=== PATIENT | male | born 1955 | race Caucasian/White ===

== ENCOUNTER 2016-07-03 15:34 | Inpatient (IN) | payer OTHER ==
[2016-07-03] MEDS ORDERED: Ondansetron 4 MG/2 ML SDV IVPUSH PRN (15:37)
[2016-07-03] MEDS ORDERED: Sodium Chloride 0.9% 2.5 ML Syringe FLUSH PRN (15:37)
[2016-07-03] MEDS ORDERED: Sodium Chloride 0.9% 1,000 ML IV SCH ×2 (15:45→17:45)
--- NOTE | 2016-07-03 16:23 | PCM.HP ---
<Joann Gonzales M - Last Filed: 07/03/16 16:47> H&P History of Present Illness - General Date of Service: 07/03/16 Admit Problem/Dx: Admission Diagnosis/Problem Admission Diagnosis/Problem Hyperglycemia Source of Information: Patient History Limitations: Reports: Altered mental status - History of Present Illness Initial Comments - Free Text/Narative: This 60 year old male presented to [place] ED today due to complaints of intense sore throat, he reports drinking anything possible to soothe his throat. He reports recently being on amoxicillin for a "jaw infection" by the dentist, but he denied continuing this course of antibiotics. He denies any history of DM or COPD. He denies taking any home medications. He reports some intermittent confusion at work but "works through it". It was noted in [place] to have intermittent confusion, Head CT obtained which was negative. Leukocytosis, 14,300 noted with hyperglycemia, 910. Anion gap 19, Bicarb 24, Cl 83, Na 126, Potassium 5.2. BUN 43, Cr 1.9. UA negative and negative tox screen. Strep screen negative. He will be admitted to ICU with Hyperosmolar hyperglycemia, AMS, dehydration, TERRIE, and oral thrush. - Related Data Allergies/Adverse Reactions: Allergies Allergy/AdvReac Type Severity Reaction Status Date / Time Penicillins Allergy Cannot Verified 07/03/16 15:44 Remember Past Medical History HEENT History: Reports: None Cardiovascular History: Denies: Blood clots/VTE/DVT, CAD, Heart Failure, High cholesterol, Hypertension, [place] Respiratory History: Denies: Asthma, COPD Gastrointestinal History: Denies: GERD, GI bleed Genitourinary History: Reports: Acute renal failure. Denies: Chronic renal insuffiency Neurological History: Denies: CVA, TIA Psychiatric History: Reports: None, Depression Endocrine/Metabolic History: Reports: Diabetes, type II (he denies having or taking medication for but home medication list has DM type 2 treatment) Hematologic History: Reports: None Social & Family History - Tobacco Use Smoking Status *Q: Former Smoker Used Tobacco, but Quit: Yes - Alcohol Use Alcohol Use History: No - Recreational Drug Use Recreational Drug Use: No Drug Use in Last 12 Months: No - Living Situation & Occupation Occupation: employed (Works at [employer] in [place]) H&P Review of Systems - Review of Systems: Review Of Systems: See Below General: Denies: fever, chills, malaise, weakness HEENT: Reports: sore throat. Denies: headaches, sinus congestion Pulmonary: Reports: no symptoms. Denies: shortness of breath, wheezing, cough, sputum Cardiovascular: Reports: no symptoms. Denies: chest pain, palpitations, edema Gastrointestinal: Reports: No symptoms. Denies: Abdominal pain, Black stool, Bloody stool, Nausea, Vomiting Genitourinary: Reports: no symptoms. Denies: dysuria, frequency, burning, pain Musculoskeletal: Reports: no symptoms Skin: Reports: no symptoms Psychiatric: Reports: no symptoms Neurological: Reports: no symptoms Hematologic/Lymphatic: Reports: no symptoms Immunologic: Reports: no symptoms Exam - Exam Exam: See Below - Exam Quality Assessment: DVT prophylaxis. No: supplemental oxygen General: alert, cooperative. No: oriented (intermittent confusion) HEENT: Conjunctiva clear, EACs clear, EOMI, Hearing intact, Nares patent, Posterior pharynx clear (lace appearing white plaque noted to posterior pharynx , no pustules, erythema noted). No: Mucosa moist & pink (dry) Neck: supple, trachea midline. No: lymphadenopathy, JVD Lungs: Clear to auscultation, Normal respiratory effort Cardiovascular: regular rate, regular rhythm, normal S1, normal S2 Abdomen: normal bowel sounds, soft. No: organomegaly, tenderness Back Exam: normal inspection, full range of motion, NT Extremities: normal inspection, normal pulses. No: edema, increased warmth Neuro Extensive - Mental Status: alert, oriented x3, normal mood/affect, normal cognition. No: memory intact Neuro Extensive - Motor, Sensory, Reflexes: CN II-XII intact, normal gait, normal reflexes Psychiatric: alert, normal affect, normal mood - Patient Data Result Diagrams: 07/03/16 16:04 *Q Meaningful Use (ADM) - VTE *Q VTE Criteria *Q: - VTE Risk Assess *Q Each Risk Factor Represents 1 Point: None Total Score 1 Point Risk Factors: 0 Each Risk Factor Represents 2 Points: Age 60 - 74 Years Total Score 2 Point Risk Factors: 2 Each Risk Factor Represents 3 Points: None Total Score 3 Point Risk Factors: 0 Each Risk Factor Represents 5 Points: None Total Score 5 Point Risk Factors: 0 Venous Thromboembolism Risk Factor Score *Q: 2 - Stroke *Q Stroke Criteria *Q: - AMI *Q AMI Criteria *Q: - Problem List (1) Hyperglycemia due to type 2 diabetes mellitus SNOMED Code(s): 870222698870053, 344394988614941 ICD Code: E11.65 - TYPE 2 DIABETES MELLITUS WITH HYPERGLYCEMIA Status: Acute Current Visit: Yes Qualifiers: Diabetes mellitus long goods drier insulin use: without chcf use Qualified Code(s): E11.65 - Type 2 diabetes mellitus with hyperglycemia (2) Oral thrush SNOMED Code(s): 97948395 ICD Code: B37.0 - CANDIDAL STOMATITIS Status: Acute Current Visit: Yes (3) TERRIE (acute kidney injury) SNOMED Code(s): 86651830 ICD Code: N17.9 - ACUTE KIDNEY FAILURE, UNSPECIFIED Status: Acute Current Visit: Yes (4) Dehydration SNOMED Code(s): 90054690 ICD Code: E86.0 - DEHYDRATION Status: Acute Current Visit: Yes (5) Altered mental status SNOMED Code(s): 162863108 ICD Code: R41.82 - ALTERED MENTAL STATUS, UNSPECIFIED Status: Acute Current Visit: Yes Problem List Initiated/Reviewed/Updated: Yes Orders Last 24hrs: Active Orders 24 hr Category Date Time Status Patient Status [ADT] Routine ADT 07/03/16 15:37 Active Antiembolic Devices [RC] PER UNIT ROUTINE Care 07/03/16 15:40 Active Blood Glucose Check, Bedside [RC] Q1H Care 07/03/16 15:37 Active Height and Weight [RC] DAILY Care 07/03/16 15:37 Active Intake and Output [RC] QSHIFT Care 07/03/16 15:39 Active Oxygen Therapy [RC] PRN Care 07/03/16 15:37 Active VTE/DVT Education [RC] PER UNIT ROUTINE Care 07/03/16 15:37 Active Vital Signs [RC] Q4H Care 07/03/16 15:37 Active Consult to Diabetic Nurse Specialist [CONS] Routine Cons 07/03/16 15:37 Active Nothing per Oral Now Diet [DIET] Diet 07/03/16 Dinner Active Chest 1V Frontal [CR] Routine Exams 07/03/16 15:57 Ordered BLOOD GAS ARTERIAL [BG] Stat Lab 07/03/16 15:37 Ordered CBC WITH AUTO DIFF [HEME] Stat Lab 07/03/16 15:37 Ordered COMPREHENSIVE METABOLIC PN,CMP [CHEM] Stat Lab 07/03/16 15:37 Ordered CULTURE BLOOD [BC] Stat Lab 07/03/16 15:42 Ordered CULTURE BLOOD [BC] Stat Lab 07/03/16 15:42 Ordered CULTURE SPUTUM + SMEAR [RM] Stat Lab 07/03/16 15:37 Uncollected KETONES,BLOOD [CHEM] Routine Lab 07/03/16 15:37 Ordered LACTIC ACID,WHOLE BLOOD [BG] Routine Lab 07/03/16 15:43 Ordered MAGNESIUM [CHEM] Stat Lab 07/03/16 15:37 Ordered PHOSPHORUS [CHEM] Stat Lab 07/03/16 15:37 Ordered Enoxaparin [Lovenox] Med 07/03/16 15:45 Active 40 mg SUBCUT DAILY Insulin Regular, Human [NovoLIN R] 100 unit Med 07/03/16 15:45 Active Sodium Chloride 0.9% [Normal Saline] 99 ml IV TITRATE Ondansetron [Zofran] Med 07/03/16 15:37 Active 4 mg IVPUSH Q4H PRN Sodium Chloride 0.9% [Normal Saline] 1,000 ml Med 07/03/16 15:45 Active IV .BOLUS Sodium Chloride 0.9% [Normal Saline] 1,000 ml Med 07/03/16 15:45 Active IV ASDIRECTED Sodium Chloride 0.9% [Saline Flush] Med 07/03/16 15:37 Active 2.5 ml FLUSH ASDIRECTED PRN Blood Culture x2 Reflex Set [OM.PC] Stat Oth 07/03/16 15:37 Ordered Saline Lock Insert [OM.PC] Routine Oth 07/03/16 15:37 Ordered Sequential Compression Device [OM.PC] Per Unit Routine Oth 07/03/16 15:39 Ordered Resuscitation Status Routine Resus Stat 07/03/16 15:37 Ordered Medication Orders Enoxaparin Sodium (Lovenox) 40 mg SUBCUT DAILY ROSETTE Sodium Chloride (Normal Saline) 1,000 mls @ 999 mls/hr IV .BOLUS ROSETTE Sodium Chloride (Normal Saline) 1,000 mls @ 200 mls/hr IV ASDIRECTED ROSETTE Insulin Human Regular 100 unit (/ Sodium Chloride) 100 mls @ 4 mls/hr IV TITRATE ROSETTE; 4 UNIT/HR PRN Reason: Protocol Ondansetron HCl (Zofran) 4 mg IVPUSH Q4H PRN PRN Reason: Nausea Sodium Chloride (Saline Flush) 2.5 ml FLUSH ASDIRECTED PRN PRN Reason: Keep Vein Open Assessment/Plan Comment:: This 60 year old male admitted with hyperosmolar hyperglycemic state, AMS, dehydration, TERRIE 1. AMS: Likely secondary to hyperosmolar hyperglycemic state, will monitor as BS return to normal. Head CT in [place] unremarkable. 2. Hyperosmolar hyperglycemic state: BS upon arrival, 464. Will initiate Insulin gtt and titrate per protocol. NS 1 L bolus upon arrival and NS at 200 mls/hr. Will monitor BMP q 4 hrs ad adjust fluids as needed. K+ 5.2. Lactate elevated, 2.2, will continue IV fluids and re check. Will add A1c and lipid panel. Consult to DM educator. 3. Dehydration: Likely due to above, hydrate and monitor BUN Cr. 4. TERRIE: Hydrate with fluids and monitor 5. Oral Thrush: Oral Nystatin swish and swallow. No Diflucan at this time due to elevated LFTs. Will monitor. VTE: Lovenox. Dispo: 2-4 days pending improvement Spoke with operations research analyst EICU physician will consult and assist with this patient. Updated Dr. Velazco on patient arrival and plan of care. She will update orders as BMP is made available. Will contact PCP in am regarding patient medication history. <Lizeth Velazco - Last Filed: 07/03/16 17:39> H&P History of Present Illness - General Admit Problem/Dx: Admission Diagnosis/Problem Admission Diagnosis/Problem Hyperglycemia Exam - Vital Signs Vital Signs: Last Vital Signs Temp 98.4 F 07/03/16 15:37 Pulse 80 07/03/16 17:00 Resp 17 07/03/16 17:00 BP 142/67 H 07/03/16 17:00 Pulse Ox 94 L 07/03/16 17:00 - Patient Data Lab Results last 24 hrs: Laboratory Results - last 24 hr 07/03/16 07/03/16 07/03/16 Range/Units 16:04 16:04 16:04 WBC 15.45 H (4.0-11.0) K/uL RBC 5.22 (4.50-5.90) M/uL Hgb 15.3 (13.0-17.0) g/dL Hct 45.2 (38.0-50.0) % MCV 86.6 (80.0-98.0) fL MCH 29.3 (27.0-32.0) pg MCHC 33.8 (31.0-37.0) g/dL RDW Std Deviation 41.9 (28.0-62.0) fl RDW Coeff of Trini 13 (11.0-15.0) % Plt Count 253 (150-400) K/uL MPV 12.80 H (7.40-12.00) fL Neut % (Auto) 75.9 (48.0-80.0) % Lymph % (Auto) 14.2 L (16.0-40.0) % [place] % (Auto) 9.5 (0.0-15.0) % Eos % (Auto) 0.2 (0.0-7.0) % Baso % (Auto) 0.2 (0.0-1.5) % Neut # 11.7 H (1.4-5.7) K/uL Lymph # 2.2 (0.6-2.4) K/uL [place] # 1.5 H (0.0-0.8) K/uL Eos # 0.0 (0.0-0.7) K/uL Baso # 0.0 (0.0-0.1) K/uL Nucleated RBC % 0.1 /100WBC Nucleated RBCs # 0 K/uL ABG pH (7.35-7.45) ABG pCO2 (35-45) mmHG ABG pO2 (75-100) mmHG ABG HCO3 (22-26) mEq/L ABG Total CO2 ABG Base Excess (-2.0-2.0) Lactate (0.20-2.00) mmol/L Sodium 133 L (136-146) mmol/L Potassium 5.3 H (3.5-5.1) mmol/L Chloride 92 L (98-110) mmol/L Carbon Dioxide 20 L (21-31) mmol/L BUN 36 H (6.0-23.0) mg/dL Creatinine 1.8 H (0.6-1.5) mg/dL Est Cr Clr Drug Dosing TNP Estimated GFR (MDRD) 38.4 ml/min Glucose 591 H* (60-110) mg/dL POC Glucose (60-110) mg/dL Hemoglobin A1c (0.0-6.0) % Calcium 9.4 (8.8-10.8) mg/dL Phosphorus 4.0 (2.4-4.7) mg/dL Magnesium 2.0 (1.5-2.3) mEq/L Total Bilirubin 0.6 (0.1-1.5) mg/dL AST 17 (5-40) IU/L ALT 30 (8-54) IU/L Alkaline Phosphatase 129 (40-150) Total Protein 7.4 (6.0-8.0) g/dL Albumin 4.0 (3.4-4.8) g/dL Globulin 3.4 (2.0-3.5) g/dL Albumin/Globulin Ratio 1.2 L (1.3-2.8) Triglycerides (10-190) mg/dL Cholesterol (131-240) mg/dL HDL Cholesterol (40-80) mg/dL Cholesterol/HDL Ratio (3.3-6.0) Ketones SMALL H (NEG) 07/03/16 07/03/16 07/03/16 Range/Units 16:04 16:04 16:04 WBC (4.0-11.0) K/uL RBC (4.50-5.90) M/uL Hgb (13.0-17.0) g/dL Hct (38.0-50.0) % MCV (80.0-98.0) fL MCH (27.0-32.0) pg MCHC (31.0-37.0) g/dL RDW Std Deviation (28.0-62.0) fl RDW Coeff of Trini (11.0-15.0) % Plt Count (150-400) K/uL MPV (7.40-12.00) fL Neut % (Auto) (48.0-80.0) % Lymph % (Auto) (16.0-40.0) % [place] % (Auto) (0.0-15.0) % Eos % (Auto) (0.0-7.0) % Baso % (Auto) (0.0-1.5) % Neut # (1.4-5.7) K/uL Lymph # (0.6-2.4) K/uL [place] # (0.0-0.8) K/uL Eos # (0.0-0.7) K/uL Baso # (0.0-0.1) K/uL Nucleated RBC % /100WBC Nucleated RBCs # K/uL ABG pH (7.35-7.45) ABG pCO2 (35-45) mmHG ABG pO2 (75-100) mmHG ABG HCO3 (22-26) mEq/L ABG Total CO2 ABG Base Excess (-2.0-2.0) Lactate 2.2 H (0.20-2.00) mmol/L Sodium (136-146) mmol/L Potassium (3.5-5.1) mmol/L Chloride (98-110) mmol/L Carbon Dioxide (21-31) mmol/L BUN (6.0-23.0) mg/dL Creatinine (0.6-1.5) mg/dL Est Cr Clr Drug Dosing Estimated GFR (MDRD) ml/min Glucose (60-110) mg/dL POC Glucose (60-110) mg/dL Hemoglobin A1c 13.7 H (0.0-6.0) % Calcium (8.8-10.8) mg/dL Phosphorus (2.4-4.7) mg/dL Magnesium (1.5-2.3) mEq/L Total Bilirubin (0.1-1.5) mg/dL AST (5-40) IU/L ALT (8-54) IU/L Alkaline Phosphatase (40-150) Total Protein (6.0-8.0) g/dL Albumin (3.4-4.8) g/dL Globulin (2.0-3.5) g/dL Albumin/Globulin Ratio (1.3-2.8) Triglycerides 457 H (10-190) mg/dL Cholesterol 240 (131-240) mg/dL HDL Cholesterol 37 L (40-80) mg/dL Cholesterol/HDL Ratio 6.5 H (3.3-6.0) Ketones (NEG) 07/03/16 07/03/16 07/03/16 Range/Units 16:13 16:27 17:19 WBC (4.0-11.0) K/uL RBC (4.50-5.90) M/uL Hgb (13.0-17.0) g/dL Hct (38.0-50.0) % MCV (80.0-98.0) fL MCH (27.0-32.0) pg MCHC (31.0-37.0) g/dL RDW Std Deviation (28.0-62.0) fl RDW Coeff of Trini (11.0-15.0) % Plt Count (150-400) K/uL MPV (7.40-12.00) fL Neut % (Auto) (48.0-80.0) % Lymph % (Auto) (16.0-40.0) % [place] % (Auto) (0.0-15.0) % Eos % (Auto) (0.0-7.0) % Baso % (Auto) (0.0-1.5) % Neut # (1.4-5.7) K/uL Lymph # (0.6-2.4) K/uL [place] # (0.0-0.8) K/uL Eos # (0.0-0.7) K/uL Baso # (0.0-0.1) K/uL Nucleated RBC % /100WBC Nucleated RBCs # K/uL ABG pH 7.331 L (7.35-7.45) ABG pCO2 37 (35-45) mmHG ABG pO2 70 L (75-100) mmHG ABG HCO3 19 L (22-26) mEq/L ABG Total CO2 17.3 ABG Base Excess -6.0 L (-2.0-2.0) Lactate (0.20-2.00) mmol/L Sodium (136-146) mmol/L Potassium (3.5-5.1) mmol/L Chloride (98-110) mmol/L Carbon Dioxide (21-31) mmol/L BUN (6.0-23.0) mg/dL Creatinine (0.6-1.5) mg/dL Est Cr Clr Drug Dosing Estimated GFR (MDRD) ml/min Glucose (60-110) mg/dL POC Glucose 464 H 375 H (60-110) mg/dL Hemoglobin A1c (0.0-6.0) % Calcium (8.8-10.8) mg/dL Phosphorus (2.4-4.7) mg/dL Magnesium (1.5-2.3) mEq/L Total Bilirubin (0.1-1.5) mg/dL AST (5-40) IU/L ALT (8-54) IU/L Alkaline Phosphatase (40-150) Total Protein (6.0-8.0) g/dL Albumin (3.4-4.8) g/dL Globulin (2.0-3.5) g/dL Albumin/Globulin Ratio (1.3-2.8) Triglycerides (10-190) mg/dL Cholesterol (131-240) mg/dL HDL Cholesterol (40-80) mg/dL Cholesterol/HDL Ratio (3.3-6.0) Ketones (NEG) Result Diagrams: 07/03/16 16:04 07/03/16 16:04 *Q Meaningful Use (ADM) - VTE *Q VTE Criteria *Q: - Stroke *Q Stroke Criteria *Q: - AMI *Q AMI Criteria *Q: Orders Last 24hrs: Active Orders 24 hr Category Date Time Status Patient Status [ADT] Routine ADT 07/03/16 15:37 Active Antiembolic Devices [RC] PER UNIT ROUTINE Care 07/03/16 15:40 Active Antiembolic Devices [RC] PER UNIT ROUTINE Care 07/03/16 16:46 Active Blood Glucose Check, Bedside [RC] .PRN Care 07/03/16 15:37 Active Height and Weight [RC] DAILY Care 07/03/16 15:37 Active Intake and Output [RC] QSHIFT Care 07/03/16 15:39 Active Oxygen Therapy [RC] PRN Care 07/03/16 15:37 Active VTE/DVT Education [RC] PER UNIT ROUTINE Care 07/03/16 15:37 Active Vital Signs [RC] Q1H Care 07/03/16 15:37 Active Consult to Diabetic Nurse Specialist [CONS] Routine Cons 07/03/16 15:37 Active Nothing per Oral Now Diet [DIET] Diet 07/03/16 Dinner Active Chest 1V Frontal [CR] Routine Exams 07/03/16 15:57 Taken BMP [BASIC METABOLIC PANEL,BMP] [CHEM] Q4H Lab 07/03/16 20:00 Ordered BMP [BASIC METABOLIC PANEL,BMP] [CHEM] Q4H Lab 07/04/16 00:00 Ordered BMP [BASIC METABOLIC PANEL,BMP] [CHEM] Q4H Lab 07/04/16 04:00 Ordered BMP [BASIC METABOLIC PANEL,BMP] [CHEM] Q4H Lab 07/04/16 08:00 Ordered BMP [BASIC METABOLIC PANEL,BMP] [CHEM] Q4H Lab 07/04/16 12:00 Ordered CULTURE BLOOD [BC] Stat Lab 07/03/16 16:04 Received CULTURE BLOOD [BC] Stat Lab 07/03/16 16:15 Received CULTURE SPUTUM + SMEAR [RM] Stat Lab 07/03/16 15:37 Uncollected LACTIC ACID,WHOLE BLOOD [BG] Routine Lab 07/03/16 20:00 Ordered Enoxaparin [Lovenox] Med 07/03/16 15:45 Active 40 mg SUBCUT DAILY Insulin Regular, Human [NovoLIN R] 100 unit Med 07/03/16 15:45 Active Sodium Chloride 0.9% [Normal Saline] 99 ml IV TITRATE Nystatin [Mycostatin] Med 07/03/16 16:30 Active 10 ml PO QID Ondansetron [Zofran] Med 07/03/16 15:37 Active 4 mg IVPUSH Q4H PRN Sodium Chloride 0.9% [Normal Saline] 1,000 ml Med 07/03/16 15:45 Active IV .BOLUS Sodium Chloride 0.9% [Normal Saline] 1,000 ml Med 07/03/16 15:45 Active IV ASDIRECTED Sodium Chloride 0.9% [Saline Flush] Med 07/03/16 15:37 Active 2.5 ml FLUSH ASDIRECTED PRN Blood Culture x2 Reflex Set [OM.PC] Stat Oth 07/03/16 15:37 Ordered SCD [Sequential Compression Device] [OM.PC] Routine Oth 07/03/16 16:46 Ordered Saline Lock Insert [OM.PC] Routine Oth 07/03/16 15:37 Ordered Sequential Compression Device [OM.PC] Per Unit Routine Oth 07/03/16 15:39 Ordered Resuscitation Status Routine Resus Stat 07/03/16 15:37 Ordered Medication Orders Enoxaparin Sodium (Lovenox) 40 mg SUBCUT DAILY [facility] Last Admin: 07/03/16 16:26 Dose: Not Given Sodium Chloride (Normal Saline) 1,000 mls @ 999 mls/hr IV .BOLUS ROSETTE Sodium Chloride (Normal Saline) 1,000 mls @ 200 mls/hr IV ASDIRECTED ROSETTE Last Admin: 07/03/16 17:27 Dose: 200 mls/hr Insulin Human Regular 100 unit (/ Sodium Chloride) 100 mls @ 4 mls/hr IV TITRATE ROSETTE; 4 UNIT/HR PRN Reason: Protocol Last Titration: 07/03/16 17:28 Dose: 6 unit/hr, 6 mls/hr Admin: 07/03/16 16:22 Dose: 8 unit/hr, 8 mls/hr Nystatin (Mycostatin) 10 ml PO QID ROSETTE Last Admin: 07/03/16 16:34 Dose: 10 ml Ondansetron HCl (Zofran) 4 mg IVPUSH Q4H PRN PRN Reason: Nausea Sodium Chloride (Saline Flush) 2.5 ml FLUSH ASDIRECTED PRN PRN Reason: Keep Vein Open Assessment/Plan Comment:: Patient has small ketones in the blood . He has Bicarb on Abg 19. he also has DKA. received 3 L of NS , will add one more liter NS. No tooth pain or swelling of the gum . pharmacy will also prep Magic mouth wash for patient without Benadryl.
[2016-07-03] MEDS: Enoxaparin 40 MG/0.4 ML Syringe SUBCUT SCH (16:26)
[2016-07-03] MEDS ORDERED: Nystatin Susp 100,000 Unit/ML 5 ML UD Cup PO SCH (16:30)
[2016-07-03 16:44] LABS: CHLORIDE,CL 92 mmol/L (98-110); SODIUM,NA 133 mmol/L (136-146)
[2016-07-03] MEDS: Sodium Chloride 0.9% 1,000 ML IV SCH ×2 (17:27→21:58)
[2016-07-03] MEDS: Fluconazole/Dextrose 200 MG in Premix Bag 1 BAG IV SCH (18:22)
[2016-07-03] MEDS: ALUM HYDROX PO SCH ×9 (18:22→21:30)
[2016-07-03] MEDS: NYSTATIN PO SCH ×9 (18:22→21:30)
[2016-07-03] MEDS: MAG HYDROX PO SCH ×9 (18:22→21:30)
[2016-07-03] MEDS: LIDOCAINE PO SCH ×9 (18:22→21:30)
[2016-07-03] MEDS: SIMETH PO SCH ×9 (18:22→21:30)
[2016-07-04] MEDS: Benzocaine/Cetylpyridinium/Menthol Lozenge MUCMEM PRN ×5 (00:52→16:52)
[2016-07-04 00:55] LABS: CHLORIDE,CL 104 mmol/L (98-110); SODIUM,NA 139 mmol/L (136-146)
[2016-07-04] MEDS: ALUM HYDROX PO SCH ×18 (02:30→21:46)
[2016-07-04] MEDS: NYSTATIN PO SCH ×18 (02:30→21:46)
[2016-07-04] MEDS: MAG HYDROX PO SCH ×18 (02:30→21:46)
[2016-07-04] MEDS: LIDOCAINE PO SCH ×18 (02:30→21:46)
[2016-07-04] MEDS: SIMETH PO SCH ×18 (02:30→21:46)
[2016-07-04] MEDS: Sodium Chloride 0.9% 1,000 ML IV SCH ×4 (02:45→09:13)
[2016-07-04 04:41] LABS: CHLORIDE,CL 107 mmol/L (98-110); SODIUM,NA 138 mmol/L (136-146)
[2016-07-04] MEDS: Insulin Glargine,Human Rec. Analog 100 Units/ML 3 ML Pen SUBCUT SCH ×2 (06:04→08:20)
[2016-07-04] MEDS ORDERED: Insulin Regular, Human 100 Units/ML 10 ML Vial SUBCUT SCH (07:30)
[2016-07-04] MEDS ORDERED: Insulin Aspart 100 Units/ML 3 ML Pen SUBCUT SCH ×2 (07:30→11:30)
[2016-07-04] MEDS: Enoxaparin 40 MG/0.4 ML Syringe SUBCUT SCH (08:19)
[2016-07-04] MEDS: Insulin Aspart 100 Units/ML 3 ML Pen SUBCUT SCH ×6 (08:19→21:17)
[2016-07-04] MEDS ORDERED: Insulin Glargine,Human Rec. Analog 100 Units/ML 3 ML Pen SUBCUT SCH ×2 (09:00→21:00)
[2016-07-04] MEDS ORDERED: Insulin Glargine,Human Rec. Analog 100 Units/ML 3 ML Pen SUBCUT ONE (09:00)
[2016-07-04] MEDS: atorvaSTATin 40 MG Tab PO SCH ×2 (09:04→21:13)
--- NOTE | 2016-07-04 09:51 | PCM.PN ---
<Joann Gonzales M - Last Filed: 07/04/16 12:01> - General Info Date of Service: 07/04/16 Admission Dx/Problem (Free Text): Admission Diagnosis/Problem Admission Diagnosis/Problem Hyperglycemia Subjective Update: Feeling better today, feels more "clear". Alert and oriented. Denies chest pain or SOB. Sore throat continues and food does not taste good. Functional Status: Reports: pain controlled, ambulating, urinating. Denies: tolerating diet - Review of Systems General: Reports: no symptoms HEENT: Reports: sore throat. Denies: headaches, sinus congestion Pulmonary: Reports: no symptoms. Denies: shortness of breath, cough, sputum Cardiovascular: Reports: no symptoms. Denies: chest pain, palpitations, edema Gastrointestinal: Reports: No symptoms. Denies: Abdominal pain, Nausea, Vomiting Genitourinary: Reports: no symptoms Musculoskeletal: Reports: no symptoms Skin: Reports: no symptoms Neurological: Reports: no symptoms Psychiatric: Reports: no symptoms - Patient Data Vitals - most recent: Last Vital Signs Temp 97.9 F 07/04/16 08:00 Pulse 79 07/03/16 19:00 Resp 16 07/04/16 09:00 BP 112/47 L 07/04/16 09:00 Pulse Ox 92 L 07/04/16 09:00 Weight - most recent: 193 lb 9.6 oz I&O - last 24 hours: Intake & Output 07/03/16 07/04/16 07/04/16 22:59 06:59 14:59 Intake Total 3300 1900 1000 Output Total 1850 Balance 3300 50 1000 Lab Results last 24 hrs: Laboratory Results - last 24 hr 07/03/16 07/03/16 07/03/16 Range/Units 16:04 16:04 16:04 WBC 15.45 H (4.0-11.0) K/uL RBC 5.22 (4.50-5.90) M/uL Hgb 15.3 (13.0-17.0) g/dL Hct 45.2 (38.0-50.0) % MCV 86.6 (80.0-98.0) fL MCH 29.3 (27.0-32.0) pg MCHC 33.8 (31.0-37.0) g/dL RDW Std Deviation 41.9 (28.0-62.0) fl RDW Coeff of Trini 13 (11.0-15.0) % Plt Count 253 (150-400) K/uL MPV 12.80 H (7.40-12.00) fL Neut % (Auto) 75.9 (48.0-80.0) % Lymph % (Auto) 14.2 L (16.0-40.0) % Cross % (Auto) 9.5 (0.0-15.0) % Eos % (Auto) 0.2 (0.0-7.0) % Baso % (Auto) 0.2 (0.0-1.5) % Neut # 11.7 H (1.4-5.7) K/uL Lymph # 2.2 (0.6-2.4) K/uL Cross # 1.5 H (0.0-0.8) K/uL Eos # 0.0 (0.0-0.7) K/uL Baso # 0.0 (0.0-0.1) K/uL Nucleated RBC % 0.1 /100WBC Nucleated RBCs # 0 K/uL ABG pH (7.35-7.45) ABG pCO2 (35-45) mmHG ABG pO2 (75-100) mmHG ABG HCO3 (22-26) mEq/L ABG Total CO2 ABG Base Excess (-2.0-2.0) Lactate (0.20-2.00) mmol/L Sodium 133 L (136-146) mmol/L Potassium 5.3 H (3.5-5.1) mmol/L Chloride 92 L (98-110) mmol/L Carbon Dioxide 20 L (21-31) mmol/L BUN 36 H (6.0-23.0) mg/dL Creatinine 1.8 H (0.6-1.5) mg/dL Est Cr Clr Drug Dosing TNP Estimated GFR (MDRD) 38.4 ml/min Glucose 591 H* (60-110) mg/dL POC Glucose (60-110) mg/dL Hemoglobin A1c (0.0-6.0) % Calcium 9.4 (8.8-10.8) mg/dL Phosphorus 4.0 (2.4-4.7) mg/dL Magnesium 2.0 (1.5-2.3) mEq/L Total Bilirubin 0.6 (0.1-1.5) mg/dL AST 17 (5-40) IU/L ALT 30 (8-54) IU/L Alkaline Phosphatase 129 (40-150) Troponin I (0.0-0.29) NG/ML Total Protein 7.4 (6.0-8.0) g/dL Albumin 4.0 (3.4-4.8) g/dL Globulin 3.4 (2.0-3.5) g/dL Albumin/Globulin Ratio 1.2 L (1.3-2.8) Triglycerides (10-190) mg/dL Cholesterol (131-240) mg/dL HDL Cholesterol (40-80) mg/dL Cholesterol/HDL Ratio (3.3-6.0) Ketones SMALL H (NEG) 07/03/16 07/03/16 07/03/16 Range/Units 16:04 16:04 16:04 WBC (4.0-11.0) K/uL RBC (4.50-5.90) M/uL Hgb (13.0-17.0) g/dL Hct (38.0-50.0) % MCV (80.0-98.0) fL MCH (27.0-32.0) pg MCHC (31.0-37.0) g/dL RDW Std Deviation (28.0-62.0) fl RDW Coeff of Trini (11.0-15.0) % Plt Count (150-400) K/uL MPV (7.40-12.00) fL Neut % (Auto) (48.0-80.0) % Lymph % (Auto) (16.0-40.0) % Cross % (Auto) (0.0-15.0) % Eos % (Auto) (0.0-7.0) % Baso % (Auto) (0.0-1.5) % Neut # (1.4-5.7) K/uL Lymph # (0.6-2.4) K/uL Cross # (0.0-0.8) K/uL Eos # (0.0-0.7) K/uL Baso # (0.0-0.1) K/uL Nucleated RBC % /100WBC Nucleated RBCs # K/uL ABG pH (7.35-7.45) ABG pCO2 (35-45) mmHG ABG pO2 (75-100) mmHG ABG HCO3 (22-26) mEq/L ABG Total CO2 ABG Base Excess (-2.0-2.0) Lactate 2.2 H (0.20-2.00) mmol/L Sodium (136-146) mmol/L Potassium (3.5-5.1) mmol/L Chloride (98-110) mmol/L Carbon Dioxide (21-31) mmol/L BUN (6.0-23.0) mg/dL Creatinine (0.6-1.5) mg/dL Est Cr Clr Drug Dosing Estimated GFR (MDRD) ml/min Glucose (60-110) mg/dL POC Glucose (60-110) mg/dL Hemoglobin A1c 13.7 H (0.0-6.0) % Calcium (8.8-10.8) mg/dL Phosphorus (2.4-4.7) mg/dL Magnesium (1.5-2.3) mEq/L Total Bilirubin (0.1-1.5) mg/dL AST (5-40) IU/L ALT (8-54) IU/L Alkaline Phosphatase (40-150) Troponin I (0.0-0.29) NG/ML Total Protein (6.0-8.0) g/dL Albumin (3.4-4.8) g/dL Globulin (2.0-3.5) g/dL Albumin/Globulin Ratio (1.3-2.8) Triglycerides 457 H (10-190) mg/dL Cholesterol 240 (131-240) mg/dL HDL Cholesterol 37 L (40-80) mg/dL Cholesterol/HDL Ratio 6.5 H (3.3-6.0) Ketones (NEG) 07/03/16 07/03/16 07/03/16 Range/Units 16:13 16:27 17:19 WBC (4.0-11.0) K/uL RBC (4.50-5.90) M/uL Hgb (13.0-17.0) g/dL Hct (38.0-50.0) % MCV (80.0-98.0) fL MCH (27.0-32.0) pg MCHC (31.0-37.0) g/dL RDW Std Deviation (28.0-62.0) fl RDW Coeff of Trini (11.0-15.0) % Plt Count (150-400) K/uL MPV (7.40-12.00) fL Neut % (Auto) (48.0-80.0) % Lymph % (Auto) (16.0-40.0) % Cross % (Auto) (0.0-15.0) % Eos % (Auto) (0.0-7.0) % Baso % (Auto) (0.0-1.5) % Neut # (1.4-5.7) K/uL Lymph # (0.6-2.4) K/uL Cross # (0.0-0.8) K/uL Eos # (0.0-0.7) K/uL Baso # (0.0-0.1) K/uL Nucleated RBC % /100WBC Nucleated RBCs # K/uL ABG pH 7.331 L (7.35-7.45) ABG pCO2 37 (35-45) mmHG ABG pO2 70 L (75-100) mmHG ABG HCO3 19 L (22-26) mEq/L ABG Total CO2 17.3 ABG Base Excess -6.0 L (-2.0-2.0) Lactate (0.20-2.00) mmol/L Sodium (136-146) mmol/L Potassium (3.5-5.1) mmol/L Chloride (98-110) mmol/L Carbon Dioxide (21-31) mmol/L BUN (6.0-23.0) mg/dL Creatinine (0.6-1.5) mg/dL Est Cr Clr Drug Dosing Estimated GFR (MDRD) ml/min Glucose (60-110) mg/dL POC Glucose 464 H 375 H (60-110) mg/dL Hemoglobin A1c (0.0-6.0) % Calcium (8.8-10.8) mg/dL Phosphorus (2.4-4.7) mg/dL Magnesium (1.5-2.3) mEq/L Total Bilirubin (0.1-1.5) mg/dL AST (5-40) IU/L ALT (8-54) IU/L Alkaline Phosphatase (40-150) Troponin I (0.0-0.29) NG/ML Total Protein (6.0-8.0) g/dL Albumin (3.4-4.8) g/dL Globulin (2.0-3.5) g/dL Albumin/Globulin Ratio (1.3-2.8) Triglycerides (10-190) mg/dL Cholesterol (131-240) mg/dL HDL Cholesterol (40-80) mg/dL Cholesterol/HDL Ratio (3.3-6.0) Ketones (NEG) 07/03/16 07/03/16 07/03/16 Range/Units 18:02 19:47 19:50 WBC (4.0-11.0) K/uL RBC (4.50-5.90) M/uL Hgb (13.0-17.0) g/dL Hct (38.0-50.0) % MCV (80.0-98.0) fL MCH (27.0-32.0) pg MCHC (31.0-37.0) g/dL RDW Std Deviation (28.0-62.0) fl RDW Coeff of Trini (11.0-15.0) % Plt Count (150-400) K/uL MPV (7.40-12.00) fL Neut % (Auto) (48.0-80.0) % Lymph % (Auto) (16.0-40.0) % Cross % (Auto) (0.0-15.0) % Eos % (Auto) (0.0-7.0) % Baso % (Auto) (0.0-1.5) % Neut # (1.4-5.7) K/uL Lymph # (0.6-2.4) K/uL Cross # (0.0-0.8) K/uL Eos # (0.0-0.7) K/uL Baso # (0.0-0.1) K/uL Nucleated RBC % /100WBC Nucleated RBCs # K/uL ABG pH (7.35-7.45) ABG pCO2 (35-45) mmHG ABG pO2 (75-100) mmHG ABG HCO3 (22-26) mEq/L ABG Total CO2 ABG Base Excess (-2.0-2.0) Lactate (0.20-2.00) mmol/L Sodium 139 (136-146) mmol/L Potassium 3.7 (3.5-5.1) mmol/L Chloride 102 (98-110) mmol/L Carbon Dioxide 20 L (21-31) mmol/L BUN 30 H (6.0-23.0) mg/dL Creatinine 1.3 (0.6-1.5) mg/dL Est Cr Clr Drug Dosing 60.83 Estimated GFR (MDRD) 55.9 ml/min Glucose 312 H (60-110) mg/dL POC Glucose 360 H 246 H (60-110) mg/dL Hemoglobin A1c (0.0-6.0) % Calcium 8.4 L (8.8-10.8) mg/dL Phosphorus (2.4-4.7) mg/dL Magnesium (1.5-2.3) mEq/L Total Bilirubin (0.1-1.5) mg/dL AST (5-40) IU/L ALT (8-54) IU/L Alkaline Phosphatase (40-150) Troponin I (0.0-0.29) NG/ML Total Protein (6.0-8.0) g/dL Albumin (3.4-4.8) g/dL Globulin (2.0-3.5) g/dL Albumin/Globulin Ratio (1.3-2.8) Triglycerides (10-190) mg/dL Cholesterol (131-240) mg/dL HDL Cholesterol (40-80) mg/dL Cholesterol/HDL Ratio (3.3-6.0) Ketones (NEG) 07/03/16 07/03/16 07/03/16 Range/Units 19:50 19:50 21:22 WBC (4.0-11.0) K/uL RBC (4.50-5.90) M/uL Hgb (13.0-17.0) g/dL Hct (38.0-50.0) % MCV (80.0-98.0) fL MCH (27.0-32.0) pg MCHC (31.0-37.0) g/dL RDW Std Deviation (28.0-62.0) fl RDW Coeff of Trini (11.0-15.0) % Plt Count (150-400) K/uL MPV (7.40-12.00) fL Neut % (Auto) (48.0-80.0) % Lymph % (Auto) (16.0-40.0) % Cross % (Auto) (0.0-15.0) % Eos % (Auto) (0.0-7.0) % Baso % (Auto) (0.0-1.5) % Neut # (1.4-5.7) K/uL Lymph # (0.6-2.4) K/uL Cross # (0.0-0.8) K/uL Eos # (0.0-0.7) K/uL Baso # (0.0-0.1) K/uL Nucleated RBC % /100WBC Nucleated RBCs # K/uL ABG pH (7.35-7.45) ABG pCO2 (35-45) mmHG ABG pO2 (75-100) mmHG ABG HCO3 (22-26) mEq/L ABG Total CO2 ABG Base Excess (-2.0-2.0) Lactate 1.5 (0.20-2.00) mmol/L Sodium (136-146) mmol/L Potassium (3.5-5.1) mmol/L Chloride (98-110) mmol/L Carbon Dioxide (21-31) mmol/L BUN (6.0-23.0) mg/dL Creatinine (0.6-1.5) mg/dL Est Cr Clr Drug Dosing Estimated GFR (MDRD) ml/min Glucose (60-110) mg/dL POC Glucose 226 H (60-110) mg/dL Hemoglobin A1c (0.0-6.0) % Calcium (8.8-10.8) mg/dL Phosphorus (2.4-4.7) mg/dL Magnesium (1.5-2.3) mEq/L Total Bilirubin (0.1-1.5) mg/dL AST (5-40) IU/L ALT (8-54) IU/L Alkaline Phosphatase (40-150) Troponin I < 0.10 (0.0-0.29) NG/ML Total Protein (6.0-8.0) g/dL Albumin (3.4-4.8) g/dL Globulin (2.0-3.5) g/dL Albumin/Globulin Ratio (1.3-2.8) Triglycerides (10-190) mg/dL Cholesterol (131-240) mg/dL HDL Cholesterol (40-80) mg/dL Cholesterol/HDL Ratio (3.3-6.0) Ketones (NEG) 07/03/16 07/03/16 07/04/16 Range/Units 22:43 23:59 00:25 WBC (4.0-11.0) K/uL RBC (4.50-5.90) M/uL Hgb (13.0-17.0) g/dL Hct (38.0-50.0) % MCV (80.0-98.0) fL MCH (27.0-32.0) pg MCHC (31.0-37.0) g/dL RDW Std Deviation (28.0-62.0) fl RDW Coeff of Trini (11.0-15.0) % Plt Count (150-400) K/uL MPV (7.40-12.00) fL Neut % (Auto) (48.0-80.0) % Lymph % (Auto) (16.0-40.0) % Cross % (Auto) (0.0-15.0) % Eos % (Auto) (0.0-7.0) % Baso % (Auto) (0.0-1.5) % Neut # (1.4-5.7) K/uL Lymph # (0.6-2.4) K/uL Cross # (0.0-0.8) K/uL Eos # (0.0-0.7) K/uL Baso # (0.0-0.1) K/uL Nucleated RBC % /100WBC Nucleated RBCs # K/uL ABG pH (7.35-7.45) ABG pCO2 (35-45) mmHG ABG pO2 (75-100) mmHG ABG HCO3 (22-26) mEq/L ABG Total CO2 ABG Base Excess (-2.0-2.0) Lactate (0.20-2.00) mmol/L Sodium 139 (136-146) mmol/L Potassium 4.0 (3.5-5.1) mmol/L Chloride 104 (98-110) mmol/L Carbon Dioxide 24 (21-31) mmol/L BUN 26 H (6.0-23.0) mg/dL Creatinine 1.2 (0.6-1.5) mg/dL Est Cr Clr Drug Dosing 65.90 Estimated GFR (MDRD) > 60.0 ml/min Glucose 197 H (60-110) mg/dL POC Glucose 186 H 185 H (60-110) mg/dL Hemoglobin A1c (0.0-6.0) % Calcium 8.1 L (8.8-10.8) mg/dL Phosphorus (2.4-4.7) mg/dL Magnesium (1.5-2.3) mEq/L Total Bilirubin (0.1-1.5) mg/dL AST (5-40) IU/L ALT (8-54) IU/L Alkaline Phosphatase (40-150) Troponin I (0.0-0.29) NG/ML Total Protein (6.0-8.0) g/dL Albumin (3.4-4.8) g/dL Globulin (2.0-3.5) g/dL Albumin/Globulin Ratio (1.3-2.8) Triglycerides (10-190) mg/dL Cholesterol (131-240) mg/dL HDL Cholesterol (40-80) mg/dL Cholesterol/HDL Ratio (3.3-6.0) Ketones (NEG) 07/04/16 07/04/16 07/04/16 Range/Units 01:04 02:08 03:22 WBC (4.0-11.0) K/uL RBC (4.50-5.90) M/uL Hgb (13.0-17.0) g/dL Hct (38.0-50.0) % MCV (80.0-98.0) fL MCH (27.0-32.0) pg MCHC (31.0-37.0) g/dL RDW Std Deviation (28.0-62.0) fl RDW Coeff of Trini (11.0-15.0) % Plt Count (150-400) K/uL MPV (7.40-12.00) fL Neut % (Auto) (48.0-80.0) % Lymph % (Auto) (16.0-40.0) % Cross % (Auto) (0.0-15.0) % Eos % (Auto) (0.0-7.0) % Baso % (Auto) (0.0-1.5) % Neut # (1.4-5.7) K/uL Lymph # (0.6-2.4) K/uL Cross # (0.0-0.8) K/uL Eos # (0.0-0.7) K/uL Baso # (0.0-0.1) K/uL Nucleated RBC % /100WBC Nucleated RBCs # K/uL ABG pH (7.35-7.45) ABG pCO2 (35-45) mmHG ABG pO2 (75-100) mmHG ABG HCO3 (22-26) mEq/L ABG Total CO2 ABG Base Excess (-2.0-2.0) Lactate (0.20-2.00) mmol/L Sodium (136-146) mmol/L Potassium (3.5-5.1) mmol/L Chloride (98-110) mmol/L Carbon Dioxide (21-31) mmol/L BUN (6.0-23.0) mg/dL Creatinine (0.6-1.5) mg/dL Est Cr Clr Drug Dosing Estimated GFR (MDRD) ml/min Glucose (60-110) mg/dL POC Glucose 168 H 196 H 176 H (60-110) mg/dL Hemoglobin A1c (0.0-6.0) % Calcium (8.8-10.8) mg/dL Phosphorus (2.4-4.7) mg/dL Magnesium (1.5-2.3) mEq/L Total Bilirubin (0.1-1.5) mg/dL AST (5-40) IU/L ALT (8-54) IU/L Alkaline Phosphatase (40-150) Troponin I (0.0-0.29) NG/ML Total Protein (6.0-8.0) g/dL Albumin (3.4-4.8) g/dL Globulin (2.0-3.5) g/dL Albumin/Globulin Ratio (1.3-2.8) Triglycerides (10-190) mg/dL Cholesterol (131-240) mg/dL HDL Cholesterol (40-80) mg/dL Cholesterol/HDL Ratio (3.3-6.0) Ketones (NEG) 07/04/16 07/04/16 07/04/16 Range/Units 04:13 04:14 04:14 WBC 11.15 H (4.0-11.0) K/uL RBC 4.38 L (4.50-5.90) M/uL Hgb 12.8 L (13.0-17.0) g/dL Hct 38.1 (38.0-50.0) % MCV 87.0 (80.0-98.0) fL MCH 29.2 (27.0-32.0) pg MCHC 33.6 (31.0-37.0) g/dL RDW Std Deviation 42.0 (28.0-62.0) fl RDW Coeff of Trini 13 (11.0-15.0) % Plt Count 206 (150-400) K/uL MPV 13.00 H (7.40-12.00) fL Neut % (Auto) 69.9 (48.0-80.0) % Lymph % (Auto) 18.4 (16.0-40.0) % Cross % (Auto) 10.1 (0.0-15.0) % Eos % (Auto) 1.3 (0.0-7.0) % Baso % (Auto) 0.3 (0.0-1.5) % Neut # 7.8 H (1.4-5.7) K/uL Lymph # 2.1 (0.6-2.4) K/uL Cross # 1.1 H (0.0-0.8) K/uL Eos # 0.1 (0.0-0.7) K/uL Baso # 0.0 (0.0-0.1) K/uL Nucleated RBC % 0.0 /100WBC Nucleated RBCs # 0 K/uL ABG pH (7.35-7.45) ABG pCO2 (35-45) mmHG ABG pO2 (75-100) mmHG ABG HCO3 (22-26) mEq/L ABG Total CO2 ABG Base Excess (-2.0-2.0) Lactate (0.20-2.00) mmol/L Sodium 138 (136-146) mmol/L Potassium 3.9 (3.5-5.1) mmol/L Chloride 107 (98-110) mmol/L Carbon Dioxide 22 (21-31) mmol/L BUN 24 H (6.0-23.0) mg/dL Creatinine 0.9 (0.6-1.5) mg/dL Est Cr Clr Drug Dosing 87.87 Estimated GFR (MDRD) > 60.0 ml/min Glucose 190 H (60-110) mg/dL POC Glucose 163 H (60-110) mg/dL Hemoglobin A1c (0.0-6.0) % Calcium 8.1 L (8.8-10.8) mg/dL Phosphorus (2.4-4.7) mg/dL Magnesium (1.5-2.3) mEq/L Total Bilirubin (0.1-1.5) mg/dL AST (5-40) IU/L ALT (8-54) IU/L Alkaline Phosphatase (40-150) Troponin I (0.0-0.29) NG/ML Total Protein (6.0-8.0) g/dL Albumin (3.4-4.8) g/dL Globulin (2.0-3.5) g/dL Albumin/Globulin Ratio (1.3-2.8) Triglycerides (10-190) mg/dL Cholesterol (131-240) mg/dL HDL Cholesterol (40-80) mg/dL Cholesterol/HDL Ratio (3.3-6.0) Ketones (NEG) 07/04/16 Range/Units 08:17 WBC (4.0-11.0) K/uL RBC (4.50-5.90) M/uL Hgb (13.0-17.0) g/dL Hct (38.0-50.0) % MCV (80.0-98.0) fL MCH (27.0-32.0) pg MCHC (31.0-37.0) g/dL RDW Std Deviation (28.0-62.0) fl RDW Coeff of Trini (11.0-15.0) % Plt Count (150-400) K/uL MPV (7.40-12.00) fL Neut % (Auto) (48.0-80.0) % Lymph % (Auto) (16.0-40.0) % Cross % (Auto) (0.0-15.0) % Eos % (Auto) (0.0-7.0) % Baso % (Auto) (0.0-1.5) % Neut # (1.4-5.7) K/uL Lymph # (0.6-2.4) K/uL Cross # (0.0-0.8) K/uL Eos # (0.0-0.7) K/uL Baso # (0.0-0.1) K/uL Nucleated RBC % /100WBC Nucleated RBCs # K/uL ABG pH (7.35-7.45) ABG pCO2 (35-45) mmHG ABG pO2 (75-100) mmHG ABG HCO3 (22-26) mEq/L ABG Total CO2 ABG Base Excess (-2.0-2.0) Lactate (0.20-2.00) mmol/L Sodium (136-146) mmol/L Potassium (3.5-5.1) mmol/L Chloride (98-110) mmol/L Carbon Dioxide (21-31) mmol/L BUN (6.0-23.0) mg/dL Creatinine (0.6-1.5) mg/dL Est Cr Clr Drug Dosing Estimated GFR (MDRD) ml/min Glucose (60-110) mg/dL POC Glucose 230 H (60-110) mg/dL Hemoglobin A1c (0.0-6.0) % Calcium (8.8-10.8) mg/dL Phosphorus (2.4-4.7) mg/dL Magnesium (1.5-2.3) mEq/L Total Bilirubin (0.1-1.5) mg/dL AST (5-40) IU/L ALT (8-54) IU/L Alkaline Phosphatase (40-150) Troponin I (0.0-0.29) NG/ML Total Protein (6.0-8.0) g/dL Albumin (3.4-4.8) g/dL Globulin (2.0-3.5) g/dL Albumin/Globulin Ratio (1.3-2.8) Triglycerides (10-190) mg/dL Cholesterol (131-240) mg/dL HDL Cholesterol (40-80) mg/dL Cholesterol/HDL Ratio (3.3-6.0) Ketones (NEG) Med Orders - Current: Current Medications Atorvastatin Calcium (Lipitor) 40 mg PO BEDTIME [facility] Last Admin: 03/08/17 09:04 Dose: Not Given Benzocaine/Menthol (Cepacol Sore Throat) 1 lozenge MUCMEM Q4HR PRN PRN Reason: Sore Throat Last Admin: 07/04/16 09:17 Dose: 1 lozenge Nystatin 30 ml/ Lidocaine HCl 30 ml/ Al Hydroxide/Mg Hydroxide 30 ml 0 ml PO Q4H [facility] Last Admin: 07/04/16 09:18 Dose: 5 liq Enoxaparin Sodium (Lovenox) 40 mg SUBCUT DAILY [facility] Last Admin: 07/04/16 08:19 Dose: 40 mg Sodium Chloride (Normal Saline) 1,000 mls @ 200 mls/hr IV ASDIRECTED [facility] Last Admin: 07/04/16 09:13 Dose: 200 mls/hr Fluconazole 200 mg/ Premix 100 mls @ 100 mls/hr IV Q24H [facility] Last Admin: 07/03/16 18:22 Dose: 100 mls/hr Insulin Aspart (Novolog) 0 unit SUBCUT QIDACANDBED [facility] PRN Reason: Protocol Last Admin: 07/04/16 08:19 Dose: 4 units Insulin Aspart (Novolog) 8 unit SUBCUT TIDAC [facility] Insulin Glargine (Lantus Solostar) 10 units SUBCUT DAILY [facility] Last Admin: 07/04/16 08:20 Dose: Not Given Ondansetron HCl (Zofran) 4 mg IVPUSH Q4H PRN PRN Reason: Nausea Last Admin: 07/04/16 00:32 Dose: 4 mg Sodium Chloride (Saline Flush) 2.5 ml FLUSH ASDIRECTED PRN PRN Reason: Keep Vein Open Discontinued Medications Sodium Chloride (Normal Saline) 1,000 mls @ 999 mls/hr IV .BOLUS [facility] Insulin Human Regular 100 unit (/ Sodium Chloride) 100 mls @ 4 mls/hr IV TITRATE ROSETTE; 4 UNIT/HR PRN Reason: Protocol Last Titration: 07/04/16 05:13 Dose: 0 unit/hr, 0 mls/hr Sodium Chloride (Normal Saline) 1,000 mls @ 999 mls/hr IV .BOLUS [facility] Last Admin: 07/03/16 17:38 Dose: 999 mls/hr Insulin Aspart (Novolog) 0 unit SUBCUT ACBREAKFASTANDBED [facility] PRN Reason: Protocol Insulin Aspart (Novolog) 10 unit SUBCUT TIDAC [facility] Insulin Glargine (Lantus Solostar) 10 units SUBCUT DAILY [facility] Insulin Glargine (Lantus Solostar) 16 units SUBCUT ONETIME ONE Stop: 07/04/16 09:01 Last Admin: 07/04/16 09:19 Dose: 16 units Insulin Human Regular (Novolin R) 0 unit SUBCUT QIDACANDBED [facility] PRN Reason: Protocol Nystatin (Mycostatin) 10 ml PO QID [facility] Last Admin: 07/03/16 16:34 Dose: 10 ml - Exam General: alert, oriented, cooperative HEENT: Pupils equal, Pupils reactive. No: Mucous membr. moist/pink (throat and mouth with noted erythema, less white patchy lace plaques today. ) Neck: supple. No: lymphadenopathy Lungs: Clear to auscultation, Normal respiratory effort Cardiovascular: regular rate, regular rhythm, no murmurs Abdomen: bowel sounds present, soft, no tenderness, no distension Extremities: no edema, normal pulses Neurological: no new focal deficit Psy/Mental Status: alert, normal affect, normal mood - Problem List & Annotations (1) Hyperglycemia due to type 2 diabetes mellitus SNOMED Code(s): 719973169368206, 070257688492973 Code(s): E11.65 - TYPE 2 DIABETES MELLITUS WITH HYPERGLYCEMIA Status: Acute Current Visit: Yes Qualifiers: Diabetes mellitus watermaster insulin use: without mcc use Qualified Code(s): E11.65 - Type 2 diabetes mellitus with hyperglycemia (2) Oral thrush SNOMED Code(s): 97178384 Code(s): B37.0 - CANDIDAL STOMATITIS Status: Acute Current Visit: Yes (3) TERRIE (acute kidney injury) SNOMED Code(s): 35298913 Code(s): N17.9 - ACUTE KIDNEY FAILURE, UNSPECIFIED Status: Acute Current Visit: Yes (4) Dehydration SNOMED Code(s): 73993544 Code(s): E86.0 - DEHYDRATION Status: Acute Current Visit: Yes (5) Altered mental status SNOMED Code(s): 278337860 Code(s): R41.82 - ALTERED MENTAL STATUS, UNSPECIFIED Status: Acute Current Visit: Yes - Problem List Review Problem List Initiated/Reviewed/Updated: Yes - My Orders Last 24 Hours: My Active Orders 07/03/16 15:37 Patient Status [ADT] Routine Blood Glucose Check, Bedside [RC] .PRN Height and Weight [RC] DAILY Oxygen Therapy [RC] PRN Vital Signs [RC] Q1H Consult to Diabetic Nurse Specialist [CONS] Routine CULTURE SPUTUM + SMEAR [RM] Stat Ondansetron [Zofran] 4 mg IVPUSH Q4H PRN Sodium Chloride 0.9% [Saline Flush] 2.5 ml FLUSH ASDIRECTED PRN Blood Culture x2 Reflex Set [OM.PC] Stat Saline Lock Insert [OM.PC] Routine Resuscitation Status Routine 07/03/16 15:39 Intake and Output [RC] Q12H Sequential Compression Device [OM.PC] Per Unit Routine 07/03/16 15:40 Antiembolic Devices [RC] Q12H 07/03/16 15:45 Enoxaparin [Lovenox] 40 mg SUBCUT DAILY Sodium Chloride 0.9% [Normal Saline] 1,000 ml IV ASDIRECTED 07/03/16 15:57 Chest 1V Frontal [CR] Routine 07/03/16 16:04 CULTURE BLOOD [BC] Stat 07/03/16 16:15 CULTURE BLOOD [BC] Stat 07/03/16 16:46 SCD [Sequential Compression Device] [OM.PC] Routine 07/04/16 12:00 BMP [BASIC METABOLIC PANEL,BMP] [CHEM] Q4H - Plan Plan:: This 60 year old male admitted with hyperosmolar hyperglycemic state, AMS, dehydration, TERRIE 1. AMS: Resolved. 2. Hyperosmolar hyperglycemic state: Insulin gtt discontinued overnight per EICU, Lantus 10 units and Novolog SSI started with ADA diet. Lantus 16 units more given this morning per Dr Velazco and will add Novolog 8 units with meals plus SSI. Lantus 10 units at bedtime. NS at 150 mls/hr continues, will check BMP at noon adjust fluids as needed. K+ 3.9. A1c 13.7 Consult to DM educator, will need to be discharged home on Insulin due to A1c. He reports he stopped taking medications approximately 3-4 months ago. He felt like they weren't doing anything and never got them refilled. He understands his A1c is very elevated and will need insulin now to reduce it, he may be able to restart oral meds in the future. 3. Dehydration: Resolved. 4. TERRIE: Resolved. BUN 24 Cr 0.9 5. Oral Thrush: Oral Nystatin in magic mouth wash with lidocaine swish and swallow. Diflucan was added last evening after CMP revealed normalized LFTs. Continue this, showing some improvement. VTE: Lovenox. Dispo: 1-2 days pending improvement. Transition to MS/Overflow today. Likely discharge in am. <Lizeth Velazco - Last Filed: 07/04/16 13:13> - Patient Data Vitals - most recent: Last Vital Signs Temp 98.5 F 07/04/16 12:00 Pulse 79 07/03/16 19:00 Resp 16 07/04/16 12:00 BP 120/60 07/04/16 12:00 Pulse Ox 95 07/04/16 12:00 I&O - last 24 hours: Intake & Output 07/03/16 07/04/16 07/04/16 22:59 06:59 14:59 Intake Total 3300 1900 1000 Output Total 1850 Balance 3300 50 1000 Lab Results last 24 hrs: Laboratory Results - last 24 hr 07/03/16 07/03/16 07/03/16 Range/Units 16:04 16:04 16:04 WBC 15.45 H (4.0-11.0) K/uL RBC 5.22 (4.50-5.90) M/uL Hgb 15.3 (13.0-17.0) g/dL Hct 45.2 (38.0-50.0) % MCV 86.6 (80.0-98.0) fL MCH 29.3 (27.0-32.0) pg MCHC 33.8 (31.0-37.0) g/dL RDW Std Deviation 41.9 (28.0-62.0) fl RDW Coeff of Trini 13 (11.0-15.0) % Plt Count 253 (150-400) K/uL MPV 12.80 H (7.40-12.00) fL Neut % (Auto) 75.9 (48.0-80.0) % Lymph % (Auto) 14.2 L (16.0-40.0) % Cross % (Auto) 9.5 (0.0-15.0) % Eos % (Auto) 0.2 (0.0-7.0) % Baso % (Auto) 0.2 (0.0-1.5) % Neut # 11.7 H (1.4-5.7) K/uL Lymph # 2.2 (0.6-2.4) K/uL Cross # 1.5 H (0.0-0.8) K/uL Eos # 0.0 (0.0-0.7) K/uL Baso # 0.0 (0.0-0.1) K/uL Nucleated RBC % 0.1 /100WBC Nucleated RBCs # 0 K/uL ABG pH (7.35-7.45) ABG pCO2 (35-45) mmHG ABG pO2 (75-100) mmHG ABG HCO3 (22-26) mEq/L ABG Total CO2 ABG Base Excess (-2.0-2.0) Lactate (0.20-2.00) mmol/L Sodium 133 L (136-146) mmol/L Potassium 5.3 H (3.5-5.1) mmol/L Chloride 92 L (98-110) mmol/L Carbon Dioxide 20 L (21-31) mmol/L BUN 36 H (6.0-23.0) mg/dL Creatinine 1.8 H (0.6-1.5) mg/dL Est Cr Clr Drug Dosing TNP Estimated GFR (MDRD) 38.4 ml/min Glucose 591 H* (60-110) mg/dL POC Glucose (60-110) mg/dL Hemoglobin A1c (0.0-6.0) % Calcium 9.4 (8.8-10.8) mg/dL Phosphorus 4.0 (2.4-4.7) mg/dL Magnesium 2.0 (1.5-2.3) mEq/L Total Bilirubin 0.6 (0.1-1.5) mg/dL AST 17 (5-40) IU/L ALT 30 (8-54) IU/L Alkaline Phosphatase 129 (40-150) Troponin I (0.0-0.29) NG/ML Total Protein 7.4 (6.0-8.0) g/dL Albumin 4.0 (3.4-4.8) g/dL Globulin 3.4 (2.0-3.5) g/dL Albumin/Globulin Ratio 1.2 L (1.3-2.8) Triglycerides (10-190) mg/dL Cholesterol (131-240) mg/dL HDL Cholesterol (40-80) mg/dL Cholesterol/HDL Ratio (3.3-6.0) Ketones SMALL H (NEG) 07/03/16 07/03/16 07/03/16 Range/Units 16:04 16:04 16:04 WBC (4.0-11.0) K/uL RBC (4.50-5.90) M/uL Hgb (13.0-17.0) g/dL Hct (38.0-50.0) % MCV (80.0-98.0) fL MCH (27.0-32.0) pg MCHC (31.0-37.0) g/dL RDW Std Deviation (28.0-62.0) fl RDW Coeff of Trini (11.0-15.0) % Plt Count (150-400) K/uL MPV (7.40-12.00) fL Neut % (Auto) (48.0-80.0) % Lymph % (Auto) (16.0-40.0) % Cross % (Auto) (0.0-15.0) % Eos % (Auto) (0.0-7.0) % Baso % (Auto) (0.0-1.5) % Neut # (1.4-5.7) K/uL Lymph # (0.6-2.4) K/uL Cross # (0.0-0.8) K/uL Eos # (0.0-0.7) K/uL Baso # (0.0-0.1) K/uL Nucleated RBC % /100WBC Nucleated RBCs # K/uL ABG pH (7.35-7.45) ABG pCO2 (35-45) mmHG ABG pO2 (75-100) mmHG ABG HCO3 (22-26) mEq/L ABG Total CO2 ABG Base Excess (-2.0-2.0) Lactate 2.2 H (0.20-2.00) mmol/L Sodium (136-146) mmol/L Potassium (3.5-5.1) mmol/L Chloride (98-110) mmol/L Carbon Dioxide (21-31) mmol/L BUN (6.0-23.0) mg/dL Creatinine (0.6-1.5) mg/dL Est Cr Clr Drug Dosing Estimated GFR (MDRD) ml/min Glucose (60-110) mg/dL POC Glucose (60-110) mg/dL Hemoglobin A1c 13.7 H (0.0-6.0) % Calcium (8.8-10.8) mg/dL Phosphorus (2.4-4.7) mg/dL Magnesium (1.5-2.3) mEq/L Total Bilirubin (0.1-1.5) mg/dL AST (5-40) IU/L ALT (8-54) IU/L Alkaline Phosphatase (40-150) Troponin I (0.0-0.29) NG/ML Total Protein (6.0-8.0) g/dL Albumin (3.4-4.8) g/dL Globulin (2.0-3.5) g/dL Albumin/Globulin Ratio (1.3-2.8) Triglycerides 457 H (10-190) mg/dL Cholesterol 240 (131-240) mg/dL HDL Cholesterol 37 L (40-80) mg/dL Cholesterol/HDL Ratio 6.5 H (3.3-6.0) Ketones (NEG) 07/03/16 07/03/16 07/03/16 Range/Units 16:13 16:27 17:19 WBC (4.0-11.0) K/uL RBC (4.50-5.90) M/uL Hgb (13.0-17.0) g/dL Hct (38.0-50.0) % MCV (80.0-98.0) fL MCH (27.0-32.0) pg MCHC (31.0-37.0) g/dL RDW Std Deviation (28.0-62.0) fl RDW Coeff of Trini (11.0-15.0) % Plt Count (150-400) K/uL MPV (7.40-12.00) fL Neut % (Auto) (48.0-80.0) % Lymph % (Auto) (16.0-40.0) % Cross % (Auto) (0.0-15.0) % Eos % (Auto) (0.0-7.0) % Baso % (Auto) (0.0-1.5) % Neut # (1.4-5.7) K/uL Lymph # (0.6-2.4) K/uL Cross # (0.0-0.8) K/uL Eos # (0.0-0.7) K/uL Baso # (0.0-0.1) K/uL Nucleated RBC % /100WBC Nucleated RBCs # K/uL ABG pH 7.331 L (7.35-7.45) ABG pCO2 37 (35-45) mmHG ABG pO2 70 L (75-100) mmHG ABG HCO3 19 L (22-26) mEq/L ABG Total CO2 17.3 ABG Base Excess -6.0 L (-2.0-2.0) Lactate (0.20-2.00) mmol/L Sodium (136-146) mmol/L Potassium (3.5-5.1) mmol/L Chloride (98-110) mmol/L Carbon Dioxide (21-31) mmol/L BUN (6.0-23.0) mg/dL Creatinine (0.6-1.5) mg/dL Est Cr Clr Drug Dosing Estimated GFR (MDRD) ml/min Glucose (60-110) mg/dL POC Glucose 464 H 375 H (60-110) mg/dL Hemoglobin A1c (0.0-6.0) % Calcium (8.8-10.8) mg/dL Phosphorus (2.4-4.7) mg/dL Magnesium (1.5-2.3) mEq/L Total Bilirubin (0.1-1.5) mg/dL AST (5-40) IU/L ALT (8-54) IU/L Alkaline Phosphatase (40-150) Troponin I (0.0-0.29) NG/ML Total Protein (6.0-8.0) g/dL Albumin (3.4-4.8) g/dL Globulin (2.0-3.5) g/dL Albumin/Globulin Ratio (1.3-2.8) Triglycerides (10-190) mg/dL Cholesterol (131-240) mg/dL HDL Cholesterol (40-80) mg/dL Cholesterol/HDL Ratio (3.3-6.0) Ketones (NEG) 07/03/16 07/03/16 07/03/16 Range/Units 18:02 19:47 19:50 WBC (4.0-11.0) K/uL RBC (4.50-5.90) M/uL Hgb (13.0-17.0) g/dL Hct (38.0-50.0) % MCV (80.0-98.0) fL MCH (27.0-32.0) pg MCHC (31.0-37.0) g/dL RDW Std Deviation (28.0-62.0) fl RDW Coeff of Trini (11.0-15.0) % Plt Count (150-400) K/uL MPV (7.40-12.00) fL Neut % (Auto) (48.0-80.0) % Lymph % (Auto) (16.0-40.0) % Cross % (Auto) (0.0-15.0) % Eos % (Auto) (0.0-7.0) % Baso % (Auto) (0.0-1.5) % Neut # (1.4-5.7) K/uL Lymph # (0.6-2.4) K/uL Cross # (0.0-0.8) K/uL Eos # (0.0-0.7) K/uL Baso # (0.0-0.1) K/uL Nucleated RBC % /100WBC Nucleated RBCs # K/uL ABG pH (7.35-7.45) ABG pCO2 (35-45) mmHG ABG pO2 (75-100) mmHG ABG HCO3 (22-26) mEq/L ABG Total CO2 ABG Base Excess (-2.0-2.0) Lactate (0.20-2.00) mmol/L Sodium 139 (136-146) mmol/L Potassium 3.7 (3.5-5.1) mmol/L Chloride 102 (98-110) mmol/L Carbon Dioxide 20 L (21-31) mmol/L BUN 30 H (6.0-23.0) mg/dL Creatinine 1.3 (0.6-1.5) mg/dL Est Cr Clr Drug Dosing 60.83 Estimated GFR (MDRD) 55.9 ml/min Glucose 312 H (60-110) mg/dL POC Glucose 360 H 246 H (60-110) mg/dL Hemoglobin A1c (0.0-6.0) % Calcium 8.4 L (8.8-10.8) mg/dL Phosphorus (2.4-4.7) mg/dL Magnesium (1.5-2.3) mEq/L Total Bilirubin (0.1-1.5) mg/dL AST (5-40) IU/L ALT (8-54) IU/L Alkaline Phosphatase (40-150) Troponin I (0.0-0.29) NG/ML Total Protein (6.0-8.0) g/dL Albumin (3.4-4.8) g/dL Globulin (2.0-3.5) g/dL Albumin/Globulin Ratio (1.3-2.8) Triglycerides (10-190) mg/dL Cholesterol (131-240) mg/dL HDL Cholesterol (40-80) mg/dL Cholesterol/HDL Ratio (3.3-6.0) Ketones (NEG) 07/03/16 07/03/16 07/03/16 Range/Units 19:50 19:50 21:22 WBC (4.0-11.0) K/uL RBC (4.50-5.90) M/uL Hgb (13.0-17.0) g/dL Hct (38.0-50.0) % MCV (80.0-98.0) fL MCH (27.0-32.0) pg MCHC (31.0-37.0) g/dL RDW Std Deviation (28.0-62.0) fl RDW Coeff of Trini (11.0-15.0) % Plt Count (150-400) K/uL MPV (7.40-12.00) fL Neut % (Auto) (48.0-80.0) % Lymph % (Auto) (16.0-40.0) % Cross % (Auto) (0.0-15.0) % Eos % (Auto) (0.0-7.0) % Baso % (Auto) (0.0-1.5) % Neut # (1.4-5.7) K/uL Lymph # (0.6-2.4) K/uL Cross # (0.0-0.8) K/uL Eos # (0.0-0.7) K/uL Baso # (0.0-0.1) K/uL Nucleated RBC % /100WBC Nucleated RBCs # K/uL ABG pH (7.35-7.45) ABG pCO2 (35-45) mmHG ABG pO2 (75-100) mmHG ABG HCO3 (22-26) mEq/L ABG Total CO2 ABG Base Excess (-2.0-2.0) Lactate 1.5 (0.20-2.00) mmol/L Sodium (136-146) mmol/L Potassium (3.5-5.1) mmol/L Chloride (98-110) mmol/L Carbon Dioxide (21-31) mmol/L BUN (6.0-23.0) mg/dL Creatinine (0.6-1.5) mg/dL Est Cr Clr Drug Dosing Estimated GFR (MDRD) ml/min Glucose (60-110) mg/dL POC Glucose 226 H (60-110) mg/dL Hemoglobin A1c (0.0-6.0) % Calcium (8.8-10.8) mg/dL Phosphorus (2.4-4.7) mg/dL Magnesium (1.5-2.3) mEq/L Total Bilirubin (0.1-1.5) mg/dL AST (5-40) IU/L ALT (8-54) IU/L Alkaline Phosphatase (40-150) Troponin I < 0.10 (0.0-0.29) NG/ML Total Protein (6.0-8.0) g/dL Albumin (3.4-4.8) g/dL Globulin (2.0-3.5) g/dL Albumin/Globulin Ratio (1.3-2.8) Triglycerides (10-190) mg/dL Cholesterol (131-240) mg/dL HDL Cholesterol (40-80) mg/dL Cholesterol/HDL Ratio (3.3-6.0) Ketones (NEG) 07/03/16 07/03/16 07/04/16 Range/Units 22:43 23:59 00:25 WBC (4.0-11.0) K/uL RBC (4.50-5.90) M/uL Hgb (13.0-17.0) g/dL Hct (38.0-50.0) % MCV (80.0-98.0) fL MCH (27.0-32.0) pg MCHC (31.0-37.0) g/dL RDW Std Deviation (28.0-62.0) fl RDW Coeff of Trini (11.0-15.0) % Plt Count (150-400) K/uL MPV (7.40-12.00) fL Neut % (Auto) (48.0-80.0) % Lymph % (Auto) (16.0-40.0) % Cross % (Auto) (0.0-15.0) % Eos % (Auto) (0.0-7.0) % Baso % (Auto) (0.0-1.5) % Neut # (1.4-5.7) K/uL Lymph # (0.6-2.4) K/uL Cross # (0.0-0.8) K/uL Eos # (0.0-0.7) K/uL Baso # (0.0-0.1) K/uL Nucleated RBC % /100WBC Nucleated RBCs # K/uL ABG pH (7.35-7.45) ABG pCO2 (35-45) mmHG ABG pO2 (75-100) mmHG ABG HCO3 (22-26) mEq/L ABG Total CO2 ABG Base Excess (-2.0-2.0) Lactate (0.20-2.00) mmol/L Sodium 139 (136-146) mmol/L Potassium 4.0 (3.5-5.1) mmol/L Chloride 104 (98-110) mmol/L Carbon Dioxide 24 (21-31) mmol/L BUN 26 H (6.0-23.0) mg/dL Creatinine 1.2 (0.6-1.5) mg/dL Est Cr Clr Drug Dosing 65.90 Estimated GFR (MDRD) > 60.0 ml/min Glucose 197 H (60-110) mg/dL POC Glucose 186 H 185 H (60-110) mg/dL Hemoglobin A1c (0.0-6.0) % Calcium 8.1 L (8.8-10.8) mg/dL Phosphorus (2.4-4.7) mg/dL Magnesium (1.5-2.3) mEq/L Total Bilirubin (0.1-1.5) mg/dL AST (5-40) IU/L ALT (8-54) IU/L Alkaline Phosphatase (40-150) Troponin I (0.0-0.29) NG/ML Total Protein (6.0-8.0) g/dL Albumin (3.4-4.8) g/dL Globulin (2.0-3.5) g/dL Albumin/Globulin Ratio (1.3-2.8) Triglycerides (10-190) mg/dL Cholesterol (131-240) mg/dL HDL Cholesterol (40-80) mg/dL Cholesterol/HDL Ratio (3.3-6.0) Ketones (NEG) 07/04/16 07/04/16 07/04/16 Range/Units 01:04 02:08 03:22 WBC (4.0-11.0) K/uL RBC (4.50-5.90) M/uL Hgb (13.0-17.0) g/dL Hct (38.0-50.0) % MCV (80.0-98.0) fL MCH (27.0-32.0) pg MCHC (31.0-37.0) g/dL RDW Std Deviation (28.0-62.0) fl RDW Coeff of Trini (11.0-15.0) % Plt Count (150-400) K/uL MPV (7.40-12.00) fL Neut % (Auto) (48.0-80.0) % Lymph % (Auto) (16.0-40.0) % Cross % (Auto) (0.0-15.0) % Eos % (Auto) (0.0-7.0) % Baso % (Auto) (0.0-1.5) % Neut # (1.4-5.7) K/uL Lymph # (0.6-2.4) K/uL Cross # (0.0-0.8) K/uL Eos # (0.0-0.7) K/uL Baso # (0.0-0.1) K/uL Nucleated RBC % /100WBC Nucleated RBCs # K/uL ABG pH (7.35-7.45) ABG pCO2 (35-45) mmHG ABG pO2 (75-100) mmHG ABG HCO3 (22-26) mEq/L ABG Total CO2 ABG Base Excess (-2.0-2.0) Lactate (0.20-2.00) mmol/L Sodium (136-146) mmol/L Potassium (3.5-5.1) mmol/L Chloride (98-110) mmol/L Carbon Dioxide (21-31) mmol/L BUN (6.0-23.0) mg/dL Creatinine (0.6-1.5) mg/dL Est Cr Clr Drug Dosing Estimated GFR (MDRD) ml/min Glucose (60-110) mg/dL POC Glucose 168 H 196 H 176 H (60-110) mg/dL Hemoglobin A1c (0.0-6.0) % Calcium (8.8-10.8) mg/dL Phosphorus (2.4-4.7) mg/dL Magnesium (1.5-2.3) mEq/L Total Bilirubin (0.1-1.5) mg/dL AST (5-40) IU/L ALT (8-54) IU/L Alkaline Phosphatase (40-150) Troponin I (0.0-0.29) NG/ML Total Protein (6.0-8.0) g/dL Albumin (3.4-4.8) g/dL Globulin (2.0-3.5) g/dL Albumin/Globulin Ratio (1.3-2.8) Triglycerides (10-190) mg/dL Cholesterol (131-240) mg/dL HDL Cholesterol (40-80) mg/dL Cholesterol/HDL Ratio (3.3-6.0) Ketones (NEG) 07/04/16 07/04/16 07/04/16 Range/Units 04:13 04:14 04:14 WBC 11.15 H (4.0-11.0) K/uL RBC 4.38 L (4.50-5.90) M/uL Hgb 12.8 L (13.0-17.0) g/dL Hct 38.1 (38.0-50.0) % MCV 87.0 (80.0-98.0) fL MCH 29.2 (27.0-32.0) pg MCHC 33.6 (31.0-37.0) g/dL RDW Std Deviation 42.0 (28.0-62.0) fl RDW Coeff of Trini 13 (11.0-15.0) % Plt Count 206 (150-400) K/uL MPV 13.00 H (7.40-12.00) fL Neut % (Auto) 69.9 (48.0-80.0) % Lymph % (Auto) 18.4 (16.0-40.0) % Cross % (Auto) 10.1 (0.0-15.0) % Eos % (Auto) 1.3 (0.0-7.0) % Baso % (Auto) 0.3 (0.0-1.5) % Neut # 7.8 H (1.4-5.7) K/uL Lymph # 2.1 (0.6-2.4) K/uL Cross # 1.1 H (0.0-0.8) K/uL Eos # 0.1 (0.0-0.7) K/uL Baso # 0.0 (0.0-0.1) K/uL Nucleated RBC % 0.0 /100WBC Nucleated RBCs # 0 K/uL ABG pH (7.35-7.45) ABG pCO2 (35-45) mmHG ABG pO2 (75-100) mmHG ABG HCO3 (22-26) mEq/L ABG Total CO2 ABG Base Excess (-2.0-2.0) Lactate (0.20-2.00) mmol/L Sodium 138 (136-146) mmol/L Potassium 3.9 (3.5-5.1) mmol/L Chloride 107 (98-110) mmol/L Carbon Dioxide 22 (21-31) mmol/L BUN 24 H (6.0-23.0) mg/dL Creatinine 0.9 (0.6-1.5) mg/dL Est Cr Clr Drug Dosing 87.87 Estimated GFR (MDRD) > 60.0 ml/min Glucose 190 H (60-110) mg/dL POC Glucose 163 H (60-110) mg/dL Hemoglobin A1c (0.0-6.0) % Calcium 8.1 L (8.8-10.8) mg/dL Phosphorus (2.4-4.7) mg/dL Magnesium (1.5-2.3) mEq/L Total Bilirubin (0.1-1.5) mg/dL AST (5-40) IU/L ALT (8-54) IU/L Alkaline Phosphatase (40-150) Troponin I (0.0-0.29) NG/ML Total Protein (6.0-8.0) g/dL Albumin (3.4-4.8) g/dL Globulin (2.0-3.5) g/dL Albumin/Globulin Ratio (1.3-2.8) Triglycerides (10-190) mg/dL Cholesterol (131-240) mg/dL HDL Cholesterol (40-80) mg/dL Cholesterol/HDL Ratio (3.3-6.0) Ketones (NEG) 07/04/16 07/04/16 07/04/16 Range/Units 08:17 11:47 12:33 WBC (4.0-11.0) K/uL RBC (4.50-5.90) M/uL Hgb (13.0-17.0) g/dL Hct (38.0-50.0) % MCV (80.0-98.0) fL MCH (27.0-32.0) pg MCHC (31.0-37.0) g/dL RDW Std Deviation (28.0-62.0) fl RDW Coeff of Trini (11.0-15.0) % Plt Count (150-400) K/uL MPV (7.40-12.00) fL Neut % (Auto) (48.0-80.0) % Lymph % (Auto) (16.0-40.0) % Cross % (Auto) (0.0-15.0) % Eos % (Auto) (0.0-7.0) % Baso % (Auto) (0.0-1.5) % Neut # (1.4-5.7) K/uL Lymph # (0.6-2.4) K/uL Cross # (0.0-0.8) K/uL Eos # (0.0-0.7) K/uL Baso # (0.0-0.1) K/uL Nucleated RBC % /100WBC Nucleated RBCs # K/uL ABG pH (7.35-7.45) ABG pCO2 (35-45) mmHG ABG pO2 (75-100) mmHG ABG HCO3 (22-26) mEq/L ABG Total CO2 ABG Base Excess (-2.0-2.0) Lactate (0.20-2.00) mmol/L Sodium 135 L (136-146) mmol/L Potassium 4.2 (3.5-5.1) mmol/L Chloride 104 (98-110) mmol/L Carbon Dioxide 20 L (21-31) mmol/L BUN 23 (6.0-23.0) mg/dL Creatinine 1.1 (0.6-1.5) mg/dL Est Cr Clr Drug Dosing 72.07 Estimated GFR (MDRD) > 60.0 ml/min Glucose 331 H (60-110) mg/dL POC Glucose 230 H 219 H (60-110) mg/dL Hemoglobin A1c (0.0-6.0) % Calcium 7.9 L (8.8-10.8) mg/dL Phosphorus (2.4-4.7) mg/dL Magnesium (1.5-2.3) mEq/L Total Bilirubin (0.1-1.5) mg/dL AST (5-40) IU/L ALT (8-54) IU/L Alkaline Phosphatase (40-150) Troponin I (0.0-0.29) NG/ML Total Protein (6.0-8.0) g/dL Albumin (3.4-4.8) g/dL Globulin (2.0-3.5) g/dL Albumin/Globulin Ratio (1.3-2.8) Triglycerides (10-190) mg/dL Cholesterol (131-240) mg/dL HDL Cholesterol (40-80) mg/dL Cholesterol/HDL Ratio (3.3-6.0) Ketones (NEG) Med Orders - Current: Current Medications Atorvastatin Calcium (Lipitor) 40 mg PO BEDTIME [facility] Last Admin: 07/04/16 09:04 Dose: Not Given Benzocaine/Menthol (Cepacol Sore Throat) 1 lozenge MUCMEM Q4HR PRN PRN Reason: Sore Throat Last Admin: 07/04/16 12:46 Dose: 1 lozenge Nystatin 30 ml/ Lidocaine HCl 30 ml/ Al Hydroxide/Mg Hydroxide 30 ml 0 ml PO Q4H [facility] Last Admin: 07/04/16 12:46 Dose: 10 liq Enoxaparin Sodium (Lovenox) 40 mg SUBCUT DAILY [facility] Last Admin: 07/04/16 08:19 Dose: 40 mg Sodium Chloride (Normal Saline) 1,000 mls @ 200 mls/hr IV ASDIRECTED [facility] Last Admin: 07/04/16 09:13 Dose: 200 mls/hr Fluconazole 200 mg/ Premix 100 mls @ 100 mls/hr IV Q24H [facility] Last Admin: 07/03/16 18:22 Dose: 100 mls/hr Insulin Aspart (Novolog) 0 unit SUBCUT QIDACANDBED [facility] PRN Reason: Protocol Last Admin: 07/04/16 11:49 Dose: 4 units Insulin Aspart (Novolog) 8 unit SUBCUT TIDAC [facility] Last Admin: 07/04/16 11:48 Dose: 8 units Insulin Glargine (Lantus Solostar) 10 units SUBCUT BEDTIME [facility] Ondansetron HCl (Zofran) 4 mg IVPUSH Q4H PRN PRN Reason: Nausea Last Admin: 07/04/16 00:32 Dose: 4 mg Sodium Chloride (Saline Flush) 2.5 ml FLUSH ASDIRECTED PRN PRN Reason: Keep Vein Open Discontinued Medications Sodium Chloride (Normal Saline) 1,000 mls @ 999 mls/hr IV .BOLUS [facility] Insulin Human Regular 100 unit (/ Sodium Chloride) 100 mls @ 4 mls/hr IV TITRATE [facility]; 4 UNIT/HR PRN Reason: Protocol Last Titration: 07/04/16 05:13 Dose: 0 unit/hr, 0 mls/hr Sodium Chloride (Normal Saline) 1,000 mls @ 999 mls/hr IV .BOLUS [facility] Last Admin: 07/03/16 17:38 Dose: 999 mls/hr Insulin Aspart (Novolog) 0 unit SUBCUT ACBREAKFASTANDBED [facility] PRN Reason: Protocol Insulin Aspart (Novolog) 10 unit SUBCUT TIDAC [facility] Insulin Glargine (Lantus Solostar) 10 units SUBCUT DAILY [facility] Insulin Glargine (Lantus Solostar) 10 units SUBCUT DAILY [facility] Last Admin: 07/04/16 08:20 Dose: Not Given Insulin Glargine (Lantus Solostar) 16 units SUBCUT ONETIME ONE Stop: 07/04/16 09:01 Last Admin: 07/04/16 09:19 Dose: 16 units Insulin Human Regular (Novolin R) 0 unit SUBCUT QIDACANDBED [facility] PRN Reason: Protocol Nystatin (Mycostatin) 10 ml PO QID [facility] Last Admin: 07/03/16 16:34 Dose: 10 ml - Problem List & Annotations (1) Ketoacidosis SNOMED Code(s): 20068535 Code(s): E87.2 - ACIDOSIS Status: Acute Current Visit: Yes (2) Diabetic ketoacidosis SNOMED Code(s): 700125049, 792538270 Code(s): E13.10 - OTH DIABETES MELLITUS WITH KETOACIDOSIS WITHOUT COMA Status: Acute Current Visit: Yes Qualifiers: Diabetes mellitus type: type 2 - Problem List Review Problem List Initiated/Reviewed/Updated: Yes - My Orders Last 24 Hours: My Active Orders 07/03/16 17:45 Fluconazole/Dextrose [Diflucan in Dextrose 200 MG/100 ML] 200 mg Premix Bag 1 bag IV Q24H Nystatin [Mycostatin] 30 ml Lidocaine 2% [Xylocaine 2% Viscous] 30 ml Alum Hydrox/Mag Hydrox/Simeth [Mag-Al Plus] 30 ml PO Q4H 07/04/16 09:00 Consult to Hosiery Mender [Consult to Diabetic Nurse Specialist] [CONS] Routine atorvaSTATin [Lipitor] 40 mg PO BEDTIME 07/04/16 11:30 Accu Check [Blood Glucose Check, Bedside] [RC] QIDACANDBED Insulin Aspart [NovoLOG] 8 unit SUBCUT TIDAC - Plan Plan:: Diabetic ketoacidosis- resolved
[2016-07-04 13:04] LABS: CHLORIDE,CL 104 mmol/L (98-110); SODIUM,NA 135 mmol/L (136-146)
--- NOTE | 2016-07-04 13:18 | CR ---
EXAM DATE: 07/03/16 PATIENT'S AGE: 60 Patient: MAYITO IQBAL Facility: [place], [place] Site . Site : 1955 Study: XRay Chest [id number]/7/2017 4:59:28 PM Ordering Physician: Juan A Stanley Final Report: HISTORY: Recent cold, leukocytosis. FINDINGS: AP portable chest radiograph demonstrates EKG leads overlying the thorax. Cardiac silhouette is normal. Pulmonary vasculature and josef are normal. No lobar consolidation or pleural effusion is seen. IMPRESSION: No acute cardiopulmonary disease. Dictated by Marge Woo MD @ 07/03/2016 5:07:45 PM Dictated by: Marge Woo MD @ 07/03/2016 17:07:51 (Electronic Signature) Report Signed by Proxy and Original Signed Document filed in the Medical Record. MTDLuis Felipe
[2016-07-04] MEDS: Fluconazole/Dextrose 200 MG in Premix Bag 1 BAG IV SCH (16:52)
[2016-07-04] MEDS ORDERED: Docusate Sodium 100 MG Cap PO ONE (19:28)
[2016-07-05] MEDS: LIDOCAINE PO SCH ×18 (02:00→21:34)
[2016-07-05] MEDS: MAG HYDROX PO SCH ×18 (02:00→21:34)
[2016-07-05] MEDS: NYSTATIN PO SCH ×18 (02:00→21:34)
[2016-07-05] MEDS: SIMETH PO SCH ×18 (02:00→21:34)
[2016-07-05] MEDS: ALUM HYDROX PO SCH ×18 (02:00→21:34)
[2016-07-05 05:55] LABS: CHLORIDE,CL 104 mmol/L (98-110); SODIUM,NA 136 mmol/L (136-146)
[2016-07-05] MEDS: Docusate Sodium 100 MG Cap PO SCH ×3 (06:54→21:04)
[2016-07-05] MEDS: Insulin Aspart 100 Units/ML 3 ML Pen SUBCUT SCH ×7 (07:56→21:15)
[2016-07-05] MEDS: Enoxaparin 40 MG/0.4 ML Syringe SUBCUT SCH (08:01)
[2016-07-05] MEDS ORDERED: Insulin Glargine,Human Rec. Analog 100 Units/ML 3 ML Pen SUBCUT SCH ×3 (09:00→21:00)
[2016-07-05] MEDS: Benzocaine/Cetylpyridinium/Menthol Lozenge MUCMEM PRN ×3 (10:38→17:08)
--- NOTE | 2016-07-05 10:49 | PCM.PN ---
Addendum entered and electronically signed by Joann Gonzales NP 07/05/16 12: 13: Spoke with Dr. Zendejas regarding gabriela esophagitis, he recommended continued Oral nystatin and Diflucan for now. No need for EGD at this time due to improvement. If once home and improvement stops or it worsens he could see him as an outpatient. I appreciate his recommendations. Original Note: <Joann Gonzales - Last Filed: 07/05/16 11:59> - General Info Date of Service: 07/05/16 Admission Dx/Problem (Free Text): Admission Diagnosis/Problem Admission Diagnosis/Problem Hyperglycemia Subjective Update: Feeling a lot better. Alert and oriented. Denies chest pain or SOB. Sore throat continues, mouth and throat feeling approximately 80-90% better. The pain is not down the throat it is all in the proximal posterior pharynx. Some foods are rough on the throat, but he is sticking to liquids and soft foods. Functional Status: Reports: pain controlled, tolerating diet, ambulating, urinating - Review of Systems General: Reports: no symptoms. Denies: fever HEENT: Reports: sore throat (improving) Pulmonary: Reports: no symptoms. Denies: shortness of breath, cough, sputum Cardiovascular: Reports: no symptoms. Denies: chest pain, palpitations Gastrointestinal: Reports: No symptoms. Denies: Abdominal pain, Nausea, Vomiting Genitourinary: Reports: no symptoms. Denies: dysuria, frequency, burning Musculoskeletal: Reports: no symptoms Skin: Reports: no symptoms Neurological: Reports: no symptoms Psychiatric: Reports: no symptoms - Patient Data Vitals - most recent: Last Vital Signs Temp 97.9 F 07/05/16 08:00 Pulse 71 07/05/16 08:00 Resp 20 07/05/16 08:00 BP 145/60 H 07/05/16 08:00 Pulse Ox 96 07/05/16 08:00 Weight - most recent: 188 lb 7.924 oz I&O - last 24 hours: Intake & Output 07/04/16 07/05/16 07/05/16 22:59 06:59 14:59 Intake Total 1760 1280 Output Total 1880 1000 Balance -120 280 Lab Results last 24 hrs: Laboratory Results - last 24 hr 07/04/16 07/04/16 07/04/16 Range/Units 11:47 12:33 16:33 WBC (4.0-11.0) K/uL RBC (4.50-5.90) M/uL Hgb (13.0-17.0) g/dL Hct (38.0-50.0) % MCV (80.0-98.0) fL MCH (27.0-32.0) pg MCHC (31.0-37.0) g/dL RDW Std Deviation (28.0-62.0) fl RDW Coeff of Trini (11.0-15.0) % Plt Count (150-400) K/uL MPV (7.40-12.00) fL Neut % (Auto) (48.0-80.0) % Lymph % (Auto) (16.0-40.0) % [place] % (Auto) (0.0-15.0) % Eos % (Auto) (0.0-7.0) % Baso % (Auto) (0.0-1.5) % Neut # (1.4-5.7) K/uL Lymph # (0.6-2.4) K/uL [place] # (0.0-0.8) K/uL Eos # (0.0-0.7) K/uL Baso # (0.0-0.1) K/uL Nucleated RBC % /100WBC Nucleated RBCs # K/uL Sodium 135 L (136-146) mmol/L Potassium 4.2 (3.5-5.1) mmol/L Chloride 104 (98-110) mmol/L Carbon Dioxide 20 L (21-31) mmol/L BUN 23 (6.0-23.0) mg/dL Creatinine 1.1 (0.6-1.5) mg/dL Est Cr Clr Drug Dosing 72.07 mL/min Estimated GFR (MDRD) > 60.0 ml/min Glucose 331 H (60-110) mg/dL POC Glucose 219 H 246 H (60-110) mg/dL Calcium 7.9 L (8.8-10.8) mg/dL 07/04/16 07/05/16 07/05/16 Range/Units 20:58 01:59 05:16 WBC 9.75 (4.0-11.0) K/uL RBC 4.15 L (4.50-5.90) M/uL Hgb 12.1 L (13.0-17.0) g/dL Hct 36.2 L (38.0-50.0) % MCV 87.2 (80.0-98.0) fL MCH 29.2 (27.0-32.0) pg MCHC 33.4 (31.0-37.0) g/dL RDW Std Deviation 42.2 (28.0-62.0) fl RDW Coeff of Trini 13 (11.0-15.0) % Plt Count 162 (150-400) K/uL MPV 12.60 H (7.40-12.00) fL Neut % (Auto) 70.8 (48.0-80.0) % Lymph % (Auto) 18.7 (16.0-40.0) % [place] % (Auto) 9.2 (0.0-15.0) % Eos % (Auto) 1.1 (0.0-7.0) % Baso % (Auto) 0.2 (0.0-1.5) % Neut # 6.9 H (1.4-5.7) K/uL Lymph # 1.8 (0.6-2.4) K/uL [place] # 0.9 H (0.0-0.8) K/uL Eos # 0.1 (0.0-0.7) K/uL Baso # 0.0 (0.0-0.1) K/uL Nucleated RBC % 0.0 /100WBC Nucleated RBCs # 0 K/uL Sodium (136-146) mmol/L Potassium (3.5-5.1) mmol/L Chloride (98-110) mmol/L Carbon Dioxide (21-31) mmol/L BUN (6.0-23.0) mg/dL Creatinine (0.6-1.5) mg/dL Est Cr Clr Drug Dosing mL/min Estimated GFR (MDRD) ml/min Glucose (60-110) mg/dL POC Glucose 271 H 190 H (60-110) mg/dL Calcium (8.8-10.8) mg/dL 07/05/16 07/05/16 Range/Units 05:16 07:08 WBC (4.0-11.0) K/uL RBC (4.50-5.90) M/uL Hgb (13.0-17.0) g/dL Hct (38.0-50.0) % MCV (80.0-98.0) fL MCH (27.0-32.0) pg MCHC (31.0-37.0) g/dL RDW Std Deviation (28.0-62.0) fl RDW Coeff of Trini (11.0-15.0) % Plt Count (150-400) K/uL MPV (7.40-12.00) fL Neut % (Auto) (48.0-80.0) % Lymph % (Auto) (16.0-40.0) % [place] % (Auto) (0.0-15.0) % Eos % (Auto) (0.0-7.0) % Baso % (Auto) (0.0-1.5) % Neut # (1.4-5.7) K/uL Lymph # (0.6-2.4) K/uL [place] # (0.0-0.8) K/uL Eos # (0.0-0.7) K/uL Baso # (0.0-0.1) K/uL Nucleated RBC % /100WBC Nucleated RBCs # K/uL Sodium 136 (136-146) mmol/L Potassium 3.6 (3.5-5.1) mmol/L Chloride 104 (98-110) mmol/L Carbon Dioxide 21 (21-31) mmol/L BUN 18 (6.0-23.0) mg/dL Creatinine 0.8 (0.6-1.5) mg/dL Est Cr Clr Drug Dosing 99.10 mL/min Estimated GFR (MDRD) > 60.0 ml/min Glucose 236 H (60-110) mg/dL POC Glucose 235 H (60-110) mg/dL Calcium 8.0 L (8.8-10.8) mg/dL [place] Results last 24 hrs: Microbiology 07/03/16 16:15 Aerobic Blood Culture - Preliminary Blood - Venous - Lab Draw NO GROWTH AFTER 1 DAY Anaerobic Blood Culture - Preliminary NO GROWTH AFTER 1 DAY 07/03/16 16:04 Aerobic Blood Culture - Preliminary Blood - Venous NO GROWTH AFTER 1 DAY Anaerobic Blood Culture - Preliminary NO GROWTH AFTER 1 DAY Med Orders - Current: Current Medications Atorvastatin Calcium (Lipitor) 40 mg PO BEDTIME [facility] Last Admin: 07/04/16 21:13 Dose: 40 mg Benzocaine/Menthol (Cepacol Sore Throat) 1 lozenge MUCMEM Q4HR PRN PRN Reason: Sore Throat Last Admin: 07/05/16 10:38 Dose: 1 lozenge Nystatin 30 ml/ Lidocaine HCl 30 ml/ Al Hydroxide/Mg Hydroxide 30 ml 0 ml PO Q4H [facility] Last Admin: 07/05/16 09:15 Dose: 10 liq Docusate Sodium (Colace) 100 mg PO TID [facility] Last Admin: 07/05/16 06:54 Dose: 100 mg Enoxaparin Sodium (Lovenox) 40 mg SUBCUT DAILY [facility] Last Admin: 07/05/16 08:01 Dose: 40 mg Fluconazole 200 mg/ Premix 100 mls @ 100 mls/hr IV Q24H [facility] Last Admin: 07/04/16 16:52 Dose: 100 mls/hr Insulin Aspart (Novolog) 0 unit SUBCUT QIDACANDBED [facility] PRN Reason: Protocol Last Admin: 07/05/16 07:59 Dose: 4 units Insulin Aspart (Novolog) 12 unit SUBCUT TIDAC [facility] Last Admin: 07/05/16 07:56 Dose: 12 units Insulin Glargine (Lantus Solostar) 10 units SUBCUT BEDTIME [facility] Last Admin: 07/04/16 21:14 Dose: 10 units Insulin Glargine (Lantus Solostar) 10 units SUBCUT DAILY [facility] Last Admin: 07/05/16 08:01 Dose: 10 units Ondansetron HCl (Zofran) 4 mg IVPUSH Q4H PRN PRN Reason: Nausea Last Admin: 07/04/16 00:32 Dose: 4 mg Sodium Chloride (Saline Flush) 2.5 ml FLUSH ASDIRECTED PRN PRN Reason: Keep Vein Open Discontinued Medications Docusate Sodium (Colace) 200 mg PO ONETIME ONE Stop: 07/04/16 19:29 Last Admin: 07/04/16 19:39 Dose: 200 mg Sodium Chloride (Normal Saline) 1,000 mls @ 999 mls/hr IV .BOLUS [facility] Sodium Chloride (Normal Saline) 1,000 mls @ 200 mls/hr IV ASDIRECTED [facility] Last Admin: 07/04/16 09:13 Dose: 200 mls/hr Insulin Human Regular 100 unit (/ Sodium Chloride) 100 mls @ 4 mls/hr IV TITRATE [facility]; 4 UNIT/HR PRN Reason: Protocol Last Titration: 07/04/16 05:13 Dose: 0 unit/hr, 0 mls/hr Sodium Chloride (Normal Saline) 1,000 mls @ 999 mls/hr IV .BOLUS [facility] Last Admin: 07/03/16 17:38 Dose: 999 mls/hr Insulin Aspart (Novolog) 0 unit SUBCUT ACBREAKFASTANDBED [facility] PRN Reason: Protocol Insulin Aspart (Novolog) 10 unit SUBCUT TIDAC [facility] Insulin Aspart (Novolog) 8 unit SUBCUT TIDAC [facility] Last Admin: 07/04/16 16:51 Dose: 8 units Insulin Glargine (Lantus Solostar) 10 units SUBCUT DAILY [facility] Insulin Glargine (Lantus Solostar) 10 units SUBCUT DAILY [facility] Last Admin: 07/04/16 08:20 Dose: Not Given Insulin Glargine (Lantus Solostar) 16 units SUBCUT ONETIME ONE Stop: 07/04/16 09:01 Last Admin: 07/04/16 09:19 Dose: 16 units Insulin Human Regular (Novolin R) 0 unit SUBCUT QIDACANDBED [facility] PRN Reason: Protocol Nystatin (Mycostatin) 10 ml PO QID [facility] Last Admin: 07/03/16 16:34 Dose: 10 ml - Exam General: alert, oriented, cooperative HEENT: Pupils equal, Pupils reactive, EOMI, Mucous membr. moist/pink (throat has erythema, which is improving.) Neck: supple, trachea midline. No: lymphadenopathy Lungs: Clear to auscultation, Normal respiratory effort Cardiovascular: regular rate, regular rhythm, no murmurs Abdomen: bowel sounds present, soft, no tenderness, no distension Extremities: no edema, normal pulses Neurological: no new focal deficit Psy/Mental Status: alert, normal affect, normal mood - Problem List & Annotations (1) Hyperglycemia due to type 2 diabetes mellitus SNOMED Code(s): 377290787689799, 859883398003270 Code(s): E11.65 - TYPE 2 DIABETES MELLITUS WITH HYPERGLYCEMIA Status: Acute Current Visit: Yes Qualifiers: Diabetes mellitus terminologist insulin use: without terminologist use Qualified Code(s): E11.65 - Type 2 diabetes mellitus with hyperglycemia (2) Oral thrush SNOMED Code(s): 87155362 Code(s): B37.0 - CANDIDAL STOMATITIS Status: Acute Current Visit: Yes (3) TERRIE (acute kidney injury) SNOMED Code(s): 12272832 Code(s): N17.9 - ACUTE KIDNEY FAILURE, UNSPECIFIED Status: Acute Current Visit: Yes (4) Dehydration SNOMED Code(s): 30709717 Code(s): E86.0 - DEHYDRATION Status: Acute Current Visit: Yes (5) Altered mental status SNOMED Code(s): 986437908 Code(s): R41.82 - ALTERED MENTAL STATUS, UNSPECIFIED Status: Acute Current Visit: Yes - Problem List Review Problem List Initiated/Reviewed/Updated: Yes - My Orders Last 24 Hours: My Active Orders 07/04/16 11:57 Transfer Patient (Change bed) [ADT] Routine 07/04/16 21:00 Insulin Glarg,Human.Rec.Analog [LantUS Solostar] 10 units SUBCUT BEDTIME - Plan Plan:: This 60 year old male admitted with hyperosmolar hyperglycemic state, AMS, dehydration, TERRIE 1. Dm type 2: BS continue to be 200-280s. Will continue Lantus, give extra 10 units this am, so will be on Lantus 20 units BID and Novolog SSI plus 12 units with each meal. Continue ADA diet. Continue to monitor BS today. Drinking good fluids. 2. Oral Thrush: Oral Nystatin in magic mouth wash with lidocaine swish and swallow. Continue Diflucan IV. Continues to improve today. Will speak with surgery regarding need for EGD to confirm gabriela esphogitis. 3. Dyslipidemia: Atorvastatin started. VTE: Lovenox. Dispo: 1-2 days pending improvement. <Lizeth Velazco - Last Filed: 07/05/16 19:03> - General Info Subjective Update: Because patient has long standing symptoms of dysphagia , and dehydration secondary to thrush and symptoms did not resolved after 72 h , it was recommended patient has a endoscopy. [employer] called Surgery and discussed case with Dr. Zendejas , Surgery attending motor and controls tester , he recommended patient should be given treatment for candidal esophagitis with fluconasole po and if his symptoms do not resolve or worsen he should be scheduled for endoscopy. Insulin dosages were discussed with patient ,will increase insulin lantus to 40 units in 24 h , 20 units BID and will give insulin aspart with meals 12units with meals and insulin on Sliding scale coverage( over the last 24 h he required 50 units insulin aspart coverage. ) - Patient Data Vitals - most recent: Last Vital Signs Temp 98.7 F 07/05/16 15:49 Pulse 81 07/05/16 15:49 Resp 18 07/05/16 15:49 BP 135/68 07/05/16 15:49 Pulse Ox 98 07/05/16 15:49 I&O - last 24 hours: Intake & Output 07/05/16 07/05/16 07/05/16 06:59 14:59 22:59 Intake Total 1280 2140 Output Total 1000 2100 Balance 280 40 Lab Results last 24 hrs: Laboratory Results - last 24 hr 07/04/16 07/05/16 07/05/16 Range/Units 20:58 01:59 05:16 WBC 9.75 (4.0-11.0) K/uL RBC 4.15 L (4.50-5.90) M/uL Hgb 12.1 L (13.0-17.0) g/dL Hct 36.2 L (38.0-50.0) % MCV 87.2 (80.0-98.0) fL MCH 29.2 (27.0-32.0) pg MCHC 33.4 (31.0-37.0) g/dL RDW Std Deviation 42.2 (28.0-62.0) fl RDW Coeff of Trini 13 (11.0-15.0) % Plt Count 162 (150-400) K/uL MPV 12.60 H (7.40-12.00) fL Neut % (Auto) 70.8 (48.0-80.0) % Lymph % (Auto) 18.7 (16.0-40.0) % [place] % (Auto) 9.2 (0.0-15.0) % Eos % (Auto) 1.1 (0.0-7.0) % Baso % (Auto) 0.2 (0.0-1.5) % Neut # 6.9 H (1.4-5.7) K/uL Lymph # 1.8 (0.6-2.4) K/uL [place] # 0.9 H (0.0-0.8) K/uL Eos # 0.1 (0.0-0.7) K/uL Baso # 0.0 (0.0-0.1) K/uL Nucleated RBC % 0.0 /100WBC Nucleated RBCs # 0 K/uL Sodium (136-146) mmol/L Potassium (3.5-5.1) mmol/L Chloride (98-110) mmol/L Carbon Dioxide (21-31) mmol/L BUN (6.0-23.0) mg/dL Creatinine (0.6-1.5) mg/dL Est Cr Clr Drug Dosing mL/min Estimated GFR (MDRD) ml/min Glucose (60-110) mg/dL POC Glucose 271 H 190 H (60-110) mg/dL Calcium (8.8-10.8) mg/dL 07/05/16 07/05/16 07/05/16 Range/Units 05:16 07:08 11:24 WBC (4.0-11.0) K/uL RBC (4.50-5.90) M/uL Hgb (13.0-17.0) g/dL Hct (38.0-50.0) % MCV (80.0-98.0) fL MCH (27.0-32.0) pg MCHC (31.0-37.0) g/dL RDW Std Deviation (28.0-62.0) fl RDW Coeff of Trini (11.0-15.0) % Plt Count (150-400) K/uL MPV (7.40-12.00) fL Neut % (Auto) (48.0-80.0) % Lymph % (Auto) (16.0-40.0) % [place] % (Auto) (0.0-15.0) % Eos % (Auto) (0.0-7.0) % Baso % (Auto) (0.0-1.5) % Neut # (1.4-5.7) K/uL Lymph # (0.6-2.4) K/uL [place] # (0.0-0.8) K/uL Eos # (0.0-0.7) K/uL Baso # (0.0-0.1) K/uL Nucleated RBC % /100WBC Nucleated RBCs # K/uL Sodium 136 (136-146) mmol/L Potassium 3.6 (3.5-5.1) mmol/L Chloride 104 (98-110) mmol/L Carbon Dioxide 21 (21-31) mmol/L BUN 18 (6.0-23.0) mg/dL Creatinine 0.8 (0.6-1.5) mg/dL Est Cr Clr Drug Dosing 99.10 mL/min Estimated GFR (MDRD) > 60.0 ml/min Glucose 236 H (60-110) mg/dL POC Glucose 235 H 328 H (60-110) mg/dL Calcium 8.0 L (8.8-10.8) mg/dL 07/05/16 Range/Units 16:51 WBC (4.0-11.0) K/uL RBC (4.50-5.90) M/uL Hgb (13.0-17.0) g/dL Hct (38.0-50.0) % MCV (80.0-98.0) fL MCH (27.0-32.0) pg MCHC (31.0-37.0) g/dL RDW Std Deviation (28.0-62.0) fl RDW Coeff of Trini (11.0-15.0) % Plt Count (150-400) K/uL MPV (7.40-12.00) fL Neut % (Auto) (48.0-80.0) % Lymph % (Auto) (16.0-40.0) % [place] % (Auto) (0.0-15.0) % Eos % (Auto) (0.0-7.0) % Baso % (Auto) (0.0-1.5) % Neut # (1.4-5.7) K/uL Lymph # (0.6-2.4) K/uL [place] # (0.0-0.8) K/uL Eos # (0.0-0.7) K/uL Baso # (0.0-0.1) K/uL Nucleated RBC % /100WBC Nucleated RBCs # K/uL Sodium (136-146) mmol/L Potassium (3.5-5.1) mmol/L Chloride (98-110) mmol/L Carbon Dioxide (21-31) mmol/L BUN (6.0-23.0) mg/dL Creatinine (0.6-1.5) mg/dL Est Cr Clr Drug Dosing mL/min Estimated GFR (MDRD) ml/min Glucose (60-110) mg/dL POC Glucose 195 H (60-110) mg/dL Calcium (8.8-10.8) mg/dL [place] Results last 24 hrs: Microbiology 07/03/16 16:15 Aerobic Blood Culture - Preliminary Blood - Venous - Lab Draw NO GROWTH AFTER 2 DAYS Anaerobic Blood Culture - Preliminary NO GROWTH AFTER 2 DAYS 07/03/16 16:04 Aerobic Blood Culture - Preliminary Blood - Venous NO GROWTH AFTER 2 DAYS Anaerobic Blood Culture - Preliminary NO GROWTH AFTER 2 DAYS Med Orders - Current: Current Medications Atorvastatin Calcium (Lipitor) 40 mg PO BEDTIME [facility] Last Admin: 07/04/16 21:13 Dose: 40 mg Benzocaine/Menthol (Cepacol Sore Throat) 1 lozenge MUCMEM Q2HR PRN PRN Reason: Sore Throat Last Admin: 07/05/16 17:08 Dose: 1 lozenge Nystatin 30 ml/ Lidocaine HCl 30 ml/ Al Hydroxide/Mg Hydroxide 30 ml 0 ml PO Q4H [facility] Last Admin: 07/05/16 17:09 Dose: 10 liq Docusate Sodium (Colace) 100 mg PO TID [facility] Last Admin: 07/05/16 13:33 Dose: 100 mg Enoxaparin Sodium (Lovenox) 40 mg SUBCUT DAILY [facility] Last Admin: 07/05/16 08:01 Dose: 40 mg Fluconazole 200 mg/ Premix 100 mls @ 100 mls/hr IV Q24H [facility] Last Admin: 07/05/16 17:04 Dose: 100 mls/hr Insulin Aspart (Novolog) 12 unit SUBCUT TIDAC [facility] Last Admin: 07/05/16 17:01 Dose: 12 units Insulin Aspart (Novolog) 0 unit SUBCUT QIDACANDBED [facility] PRN Reason: Protocol Last Admin: 07/05/16 17:02 Dose: 3 units Insulin Glargine (Lantus Solostar) 10 units SUBCUT DAILY [facility] Last Admin: 07/05/16 08:01 Dose: 10 units Insulin Glargine (Lantus Solostar) 10 units SUBCUT DAILY [facility] Last Admin: 07/05/16 12:18 Dose: 10 units Insulin Glargine (Lantus Solostar) 20 units SUBCUT BEDTIME [facility] Ondansetron HCl (Zofran) 4 mg IVPUSH Q4H PRN PRN Reason: Nausea Last Admin: 07/04/16 00:32 Dose: 4 mg Polyethylene Glycol (Miralax) 17 gm PO DAILY PRN PRN Reason: Constipation Last Admin: 07/05/16 17:01 Dose: 17 gm Sodium Chloride (Saline Flush) 2.5 ml FLUSH ASDIRECTED PRN PRN Reason: Keep Vein Open Discontinued Medications Benzocaine/Menthol (Cepacol Sore Throat) 1 lozenge MUCMEM Q4HR PRN PRN Reason: Sore Throat Last Admin: 07/05/16 15:33 Dose: 1 lozenge Docusate Sodium (Colace) 200 mg PO ONETIME ONE Stop: 07/04/16 19:29 Last Admin: 07/04/16 19:39 Dose: 200 mg Sodium Chloride (Normal Saline) 1,000 mls @ 999 mls/hr IV .BOLUS [facility] Sodium Chloride (Normal Saline) 1,000 mls @ 200 mls/hr IV ASDIRECTED [facility] Last Admin: 07/04/16 09:13 Dose: 200 mls/hr Insulin Human Regular 100 unit (/ Sodium Chloride) 100 mls @ 4 mls/hr IV TITRATE [facility]; 4 UNIT/HR PRN Reason: Protocol Last Titration: 07/04/16 05:13 Dose: 0 unit/hr, 0 mls/hr Sodium Chloride (Normal Saline) 1,000 mls @ 999 mls/hr IV .BOLUS [facility] Last Admin: 07/03/16 17:38 Dose: 999 mls/hr Insulin Aspart (Novolog) 0 unit SUBCUT ACBREAKFASTANDBED [facility] PRN Reason: Protocol Insulin Aspart (Novolog) 0 unit SUBCUT QIDACANDBED [facility] PRN Reason: Protocol Last Admin: 07/05/16 12:16 Dose: 8 units Insulin Aspart (Novolog) 10 unit SUBCUT TIDAC [facility] Insulin Aspart (Novolog) 8 unit SUBCUT TIDAC [facility] Last Admin: 07/04/16 16:51 Dose: 8 units Insulin Glargine (Lantus Solostar) 10 units SUBCUT DAILY [facility] Insulin Glargine (Lantus Solostar) 10 units SUBCUT DAILY [facility] Last Admin: 07/04/16 08:20 Dose: Not Given Insulin Glargine (Lantus Solostar) 16 units SUBCUT ONETIME ONE Stop: 07/04/16 09:01 Last Admin: 07/04/16 09:19 Dose: 16 units Insulin Glargine (Lantus Solostar) 10 units SUBCUT BEDTIME [facility] Last Admin: 07/04/16 21:14 Dose: 10 units Insulin Human Regular (Novolin R) 0 unit SUBCUT QIDACANDBED [facility] PRN Reason: Protocol Nystatin (Mycostatin) 10 ml PO QID [facility] Last Admin: 07/03/16 16:34 Dose: 10 ml EKG INTERPRETATION Rhythm: NSR - Problem List & Annotations (1) Ketoacidosis SNOMED Code(s): 67932127 Code(s): E87.2 - ACIDOSIS Status: Acute Current Visit: Yes (2) Diabetic ketoacidosis SNOMED Code(s): 102086831, 537432391 Code(s): E13.10 - OTH DIABETES MELLITUS WITH KETOACIDOSIS WITHOUT COMA Status: Acute Current Visit: Yes Qualifiers: Diabetes mellitus type: type 2 - My Orders Last 24 Hours: My Active Orders 07/04/16 19:29 Enema [RC] ASDIRECTED 07/05/16 06:00 Docusate Sodium [Colace] 100 mg PO TID 07/05/16 09:00 Insulin Glarg,Human.Rec.Analog [LantUS Solostar] 10 units SUBCUT DAILY - Plan Plan:: Patient will need a total of 14 days fluconazole 200 mg po daily .
[2016-07-05] MEDS ORDERED: Polyethylene Glycol 3350 Powder 17 GM Packet PO PRN (15:41)
[2016-07-05] MEDS: Fluconazole/Dextrose 200 MG in Premix Bag 1 BAG IV SCH (17:04)
[2016-07-05] MEDS: atorvaSTATin 40 MG Tab PO SCH (21:00)
[2016-07-06] MEDS: NYSTATIN PO SCH ×6 (00:58→05:15)
[2016-07-06] MEDS: ALUM HYDROX PO SCH ×6 (00:58→05:15)
[2016-07-06] MEDS: SIMETH PO SCH ×6 (00:58→05:15)
[2016-07-06] MEDS: LIDOCAINE PO SCH ×6 (00:58→05:15)
[2016-07-06] MEDS: MAG HYDROX PO SCH ×6 (00:58→05:15)
[2016-07-06] MEDS: Docusate Sodium 100 MG Cap PO SCH (05:15)
[2016-07-06] MEDS: Benzocaine/Cetylpyridinium/Menthol Lozenge MUCMEM PRN (05:21)
[2016-07-06 05:41] LABS: CHLORIDE,CL 104 mmol/L (98-110); SODIUM,NA 137 mmol/L (136-146)
[2016-07-06] MEDS: Insulin Aspart 100 Units/ML 3 ML Pen SUBCUT SCH ×2 (07:06→07:08)
--- NOTE | 2016-07-06 08:44 | PCM.DCSUM1 ---
Discharge Summary - Hospital Course Brief History: This 60 year old male presented to [place] ED 07/03/2016 due to complaints of intense sore throat, he reports drinking anything possible to soothe his throat. He reports recently being on amoxicillin for a "jaw infection " by the dentist, but he denied continuing this course of antibiotics. He denies any history of DM or COPD. He denies taking any home medications, he stopped them all a few months ago. He reports some intermittent confusion at work recently but "works through it". It was noted in [place] to have intermittent confusion, Head CT obtained was negative. Leukocytosis, 14,300 noted with hyperglycemia, 910. Anion gap 19, Bicarb 24, Cl 83, Na 126, Potassium 5.2. BUN 43, Cr 1.9, Ketones present in urine and serum. UA negative and negative tox screen. Strep screen negative. He was admitted to ICU with Hyperosmolar hyperglycemia vs DKA, AMS, dehydration, TERRIE, and oral thrush. - Discharge Data Discharge Date: 07/06/16 Discharge Disposition: Home, Self-Care 01 Condition: Good - Discharge Diagnosis/Problem(s) (1) Hyperglycemia due to type 2 diabetes mellitus SNOMED Code(s): 883377252535580, 244106943773542 ICD Code: E11.65 - TYPE 2 DIABETES MELLITUS WITH HYPERGLYCEMIA Status: Acute Current Visit: Yes Qualifiers: Diabetes mellitus parts counterman insulin use: without fdc use Qualified Code(s): E11.65 - Type 2 diabetes mellitus with hyperglycemia (2) Oral thrush SNOMED Code(s): 58692942 ICD Code: B37.0 - CANDIDAL STOMATITIS Status: Acute Current Visit: Yes (3) TERRIE (acute kidney injury) SNOMED Code(s): 21520708 ICD Code: N17.9 - ACUTE KIDNEY FAILURE, UNSPECIFIED Status: Resolved Current Visit: Yes (4) Dehydration SNOMED Code(s): 10207211 ICD Code: E86.0 - DEHYDRATION Status: Resolved Current Visit: Yes (5) Altered mental status SNOMED Code(s): 830564190 ICD Code: R41.82 - ALTERED MENTAL STATUS, UNSPECIFIED Status: Resolved Current Visit: Yes - Patient Summary/Data Consults: Consultations 07/03/16 15:37 Consult to Diabetic Nurse Specialist [CONS] Routine 07/04/16 09:00 Consult to Cannery Worker [Consult to Diabetic Nurse Specialist] [CONS] Routine - Patient Instructions Diet: Heart Healthy Diet, Diabetic Diet Activity: As Tolerated Showering/Bathing: May Shower Notify Provider of: Fever, Increased Pain, Swelling and Redness, Drainage, Nausea and/or Vomiting Other/Special Instructions: Check Blood sugars before each meal and at bedtime. Administer insulin as prescribed. If you should feel clammy, lightheaded, dizzy or just not feeling right check your blood sugar to monitor for hypoglycemia (low blood sugar) - Discharge Plan Prescriptions/Med Rec: Fluconazole [Diflucan] 200 mg PO DAILY #17 tablet Insulin Aspart [NovoLOG] 12 unit SUBCUT TIDAC #2 pen Insulin Glarg,Human.Rec.Analog [LantUS Solostar] 25 units SUBCUT BID #1 pen Lancets 1 each MC QID #1 box Lisinopril [Prinivil] 10 mg PO DAILY #30 tablet Pen Needle, Diabetic [Bd Ultra-Fine Pen Needle] 1 each MC 5XDAY #1 box atorvaSTATin [Lipitor] 40 mg PO BEDTIME #30 tablet metFORMIN [Glucophage] 1,000 mg PO BIDMEALS #60 tablet Home Medications: Home Meds Benzocaine/Cetylpyrd/Menthol [Cepacol Sore Throat] 1 lozenge MUCMEM Q2HR PRN #0 deepali 07/06/16 [Rx] Docusate Sodium [Colace] 100 mg PO TID PRN cap 07/06/16 [Rx] Fluconazole [Diflucan] 200 mg PO DAILY #17 tablet 07/06/16 [Rx] Insulin Aspart [NovoLOG] 12 unit SUBCUT TIDAC #2 pen 07/06/16 [Rx] Insulin Glarg,Human.Rec.Analog [LantUS Solostar] 25 units SUBCUT BID #1 pen 02/12 [Rx] Lancets 1 each MC QID #1 box 07/06/16 [Rx] Lisinopril [Prinivil] 10 mg PO DAILY #30 tablet 07/06/16 [Rx] Pen Needle, Diabetic [Bd Ultra-Fine Pen Needle] 1 each MC 5XDAY #1 box 07/06/16 [Rx] atorvaSTATin [Lipitor] 40 mg PO BEDTIME #30 tablet 07/06/16 [Rx] metFORMIN [Glucophage] 1,000 mg PO BIDMEALS #60 tablet 07/06/16 [Rx] Patient Handouts: Hyperglycemia, [id number] Referrals: Rola Bai PA [Physician Booster Pump Operator] - 07/10/16 3:00 pm - Discharge Summary/Plan Comment DC Time >30 min.: No Discharge Summary/Plan Comment: Discharge Diagnoses: DM type 2, A1c 13.7 Esophageal and oral canidida Hyperlipidemia HTN TERRIE-resolved dehydration- resolved DKA vs hyperosmolar hyperglycemia- resolved Nilay was admitted to ICU and was was treated with an insulin gtt to lower BS and correct DKA. Insulin gtt was discontinued overnight as sugars improved and anion gap closed. He was started on Novolog SSI and Lantus 10 units. Dehydration and TERRIE resolved with fluid resuscitation. Blood sugars continued to be elevated in 200-300s, Lantus was increased to 20 units BID and Novolog 12 units with each meal. This has brought BS to 200-250s. Will restart Metformin upon discharge with Lantus 20 units BID and Novolog 12 units with each meal. AMS resolved with resolution of DKA. He then recalled he once was on medications for DM and HTN but that he stopped them months ago, because he felt they were controlled.He was educated on Diabetes with Dm educator and feels comfortable with insulin pen usage. Oral and esophageal canidida noted on admission which is likely due to elevated blood sugars,and he was started on Fluconazole IV. I did speak with him regarding HIV and he declines having high risk behaviors and did not want to be tested during admission. I spoke with a General Surgeon, Dr Zendejas, who did not recommend EGD at this time since symptoms were improving. Will continue Fluconazole for a total of 21 days, would recommend intermittent monitoring of LFTs during therapy. AST 24 ALT 31 and Alk phos 99 at time of discharge. Total cholesterol 240, HDL 37 and Triglycerides 457, Atorvastatin 40 mg started. BP has been mildly elevated intermittently 120-140/70-80s. Will restart his Lisinopril 10 mg. We will discharge him home today and arrange follow up with his PCP, Rola BOWEN in [place]. I will be continuing Lantus 25 units BID, Novolog 12 units with each meal and Metformin for Dm type 2. He was instructed to increase Lantus by 2 units every 2 days if blood sugars remain above 200 in the morning. Continue Fluconazole for 17 days for oral and esophageal candidiasis. Atorvastatin for hyperlipidemia. Lisinopril for HTN. He is to return to the ED or clinic if concerns should arise. If esophageal candidiasis does not improve or worsens he will need referral for EGD. He was educated on the importance of monitoring blood sugars, hyperglycemia and hypoglcemia symptoms. He verbalizes understanding. He was educated on all new medications being added and the importance of staying on them until a provider indicates he can stop them. Healthy lifestyle and exercise encouraged as well. - General Info Date of Service: 07/06/16 Admission Dx/Problem (Free Text: Admission Diagnosis/Problem Admission Diagnosis/Problem Hyperglycemia Subjective Update: Feeling much better this am. Is NOT having dysphagia. Odynophagia has improved greatly and he was able to eat more solid food for breakfast this am. He is tolerating all liquids well. He dislikes oral Nystatin and requests not to have this anymore. He denies chest pain or SOB. No other concerns. He is eager for discharge today. He feels comfortable with self administration of insulins. Functional Status: Reports: pain controlled, tolerating diet, ambulating, urinating - Review of Systems General: Reports: no symptoms. Denies: fever HEENT: Reports: sore throat (improving). Denies: visual changes Pulmonary: Reports: no symptoms. Denies: shortness of breath Cardiovascular: Reports: no symptoms. Denies: chest pain, palpitations, edema Gastrointestinal: Reports: No symptoms. Denies: Abdominal pain, Difficulty swallowing, Nausea, Vomiting Genitourinary: Reports: no symptoms. Denies: dysuria, frequency, burning Musculoskeletal: Reports: no symptoms Skin: Reports: no symptoms Neurological: Reports: no symptoms Psychiatric: Reports: no symptoms - Patient Data Vitals - Most Recent: Last Vital Signs Temp 98.2 F 07/06/16 04:00 Pulse 71 07/06/16 04:00 Resp 18 07/06/16 04:00 BP 145/74 H 07/06/16 04:00 Pulse Ox 97 07/06/16 04:00 Weight - Most Recent: 88.3 kg I&O - Last 24 hours: Intake & Output 07/05/16 07/06/16 07/06/16 22:59 06:59 14:59 Intake Total 2140 2178 Output Total 2100 1275 Balance 40 903 Lab Results - Last 24 hrs: Laboratory Results - last 24 hr 07/05/16 07/05/16 07/05/16 Range/Units 11:24 16:51 21:03 WBC (4.0-11.0) K/uL RBC (4.50-5.90) M/uL Hgb (13.0-17.0) g/dL Hct (38.0-50.0) % MCV (80.0-98.0) fL MCH (27.0-32.0) pg MCHC (31.0-37.0) g/dL RDW Std Deviation (28.0-62.0) fl RDW Coeff of Trini (11.0-15.0) % Plt Count (150-400) K/uL MPV (7.40-12.00) fL Neut % (Auto) (48.0-80.0) % Lymph % (Auto) (16.0-40.0) % Coleman % (Auto) (0.0-15.0) % Eos % (Auto) (0.0-7.0) % Baso % (Auto) (0.0-1.5) % Neut # (1.4-5.7) K/uL Lymph # (0.6-2.4) K/uL Coleman # (0.0-0.8) K/uL Eos # (0.0-0.7) K/uL Baso # (0.0-0.1) K/uL Nucleated RBC % /100WBC Nucleated RBCs # K/uL Sodium (136-146) mmol/L Potassium (3.5-5.1) mmol/L Chloride (98-110) mmol/L Carbon Dioxide (21-31) mmol/L BUN (6.0-23.0) mg/dL Creatinine (0.6-1.5) mg/dL Est Cr Clr Drug Dosing mL/min Estimated GFR (MDRD) ml/min Glucose (60-110) mg/dL POC Glucose 328 H 195 H 239 H (60-110) mg/dL Calcium (8.8-10.8) mg/dL 07/06/16 07/06/16 07/06/16 Range/Units 05:00 05:00 06:41 WBC 8.18 (4.0-11.0) K/uL RBC 4.46 L (4.50-5.90) M/uL Hgb 12.9 L (13.0-17.0) g/dL Hct 39.2 (38.0-50.0) % MCV 87.9 (80.0-98.0) fL MCH 28.9 (27.0-32.0) pg MCHC 32.9 (31.0-37.0) g/dL RDW Std Deviation 42.6 (28.0-62.0) fl RDW Coeff of Trini 13 (11.0-15.0) % Plt Count 163 (150-400) K/uL MPV 12.80 H (7.40-12.00) fL Neut % (Auto) 64.9 (48.0-80.0) % Lymph % (Auto) 19.8 (16.0-40.0) % Coleman % (Auto) 12.6 (0.0-15.0) % Eos % (Auto) 2.3 (0.0-7.0) % Baso % (Auto) 0.4 (0.0-1.5) % Neut # 5.3 (1.4-5.7) K/uL Lymph # 1.6 (0.6-2.4) K/uL Coleman # 1.0 H (0.0-0.8) K/uL Eos # 0.2 (0.0-0.7) K/uL Baso # 0.0 (0.0-0.1) K/uL Nucleated RBC % 0.0 /100WBC Nucleated RBCs # 0 K/uL Sodium 137 (136-146) mmol/L Potassium 4.0 (3.5-5.1) mmol/L Chloride 104 (98-110) mmol/L Carbon Dioxide 24 (21-31) mmol/L BUN 15 (6.0-23.0) mg/dL Creatinine 0.8 (0.6-1.5) mg/dL Est Cr Clr Drug Dosing 99.10 mL/min Estimated GFR (MDRD) > 60.0 ml/min Glucose 275 H (60-110) mg/dL POC Glucose 247 H (60-110) mg/dL Calcium 8.3 L (8.8-10.8) mg/dL RAJIV Results - Last 24 hrs: Microbiology 03/07/17 16:15 Aerobic Blood Culture - Preliminary Blood - Venous - Lab Draw NO GROWTH AFTER 2 DAYS Anaerobic Blood Culture - Preliminary NO GROWTH AFTER 2 DAYS 07/03/16 16:04 Aerobic Blood Culture - Preliminary Blood - Venous NO GROWTH AFTER 2 DAYS Anaerobic Blood Culture - Preliminary NO GROWTH AFTER 2 DAYS Med Orders - Current: Current Medications Atorvastatin Calcium (Lipitor) 40 mg PO BEDTIME [facility] Last Admin: 07/05/16 21:00 Dose: 40 mg Benzocaine/Menthol (Cepacol Sore Throat) 1 lozenge MUCMEM Q2HR PRN PRN Reason: Sore Throat Last Admin: 07/06/16 05:21 Dose: 1 lozenge Nystatin 30 ml/ Lidocaine HCl 30 ml/ Al Hydroxide/Mg Hydroxide 30 ml 0 ml PO Q4H [facility] Last Admin: 07/06/16 05:15 Dose: 10 liq Docusate Sodium (Colace) 100 mg PO TID [facility] Last Admin: 07/06/16 05:15 Dose: 100 mg Enoxaparin Sodium (Lovenox) 40 mg SUBCUT DAILY [facility] Last Admin: 07/05/16 08:01 Dose: 40 mg Fluconazole 200 mg/ Premix 100 mls @ 100 mls/hr IV Q24H [facility] Last Admin: 07/05/16 17:04 Dose: 100 mls/hr Insulin Aspart (Novolog) 12 unit SUBCUT TIDAC [facility] Last Admin: 07/06/16 07:06 Dose: 12 units Insulin Aspart (Novolog) 0 unit SUBCUT QIDACANDBED [facility] PRN Reason: Protocol Last Admin: 07/06/16 07:08 Dose: 6 units Insulin Glargine (Lantus Solostar) 20 units SUBCUT BEDTIME [facility] Last Admin: 07/05/16 21:07 Dose: 20 units Insulin Glargine (Lantus Solostar) 20 units SUBCUT DAILY [facility] Ondansetron HCl (Zofran) 4 mg IVPUSH Q4H PRN PRN Reason: Nausea Last Admin: 07/04/16 00:32 Dose: 4 mg Polyethylene Glycol (Miralax) 17 gm PO DAILY PRN PRN Reason: Constipation Last Admin: 07/05/16 17:01 Dose: 17 gm Sodium Chloride (Saline Flush) 2.5 ml FLUSH ASDIRECTED PRN PRN Reason: Keep Vein Open Discontinued Medications Benzocaine/Menthol (Cepacol Sore Throat) 1 lozenge MUCMEM Q4HR PRN PRN Reason: Sore Throat Last Admin: 07/05/16 15:33 Dose: 1 lozenge Docusate Sodium (Colace) 200 mg PO ONETIME ONE Stop: 07/04/16 19:29 Last Admin: 07/04/16 19:39 Dose: 200 mg Sodium Chloride (Normal Saline) 1,000 mls @ 999 mls/hr IV .BOLUS ROSETTE Sodium Chloride (Normal Saline) 1,000 mls @ 200 mls/hr IV ASDIRECTED ROSETTE Last Admin: 07/04/16 09:13 Dose: 200 mls/hr Insulin Human Regular 100 unit (/ Sodium Chloride) 100 mls @ 4 mls/hr IV TITRATE ROSETTE; 4 UNIT/HR PRN Reason: Protocol Last Titration: 07/04/16 05:13 Dose: 0 unit/hr, 0 mls/hr Sodium Chloride (Normal Saline) 1,000 mls @ 999 mls/hr IV .BOLUS ROSETTE Last Admin: 07/03/16 17:38 Dose: 999 mls/hr Insulin Aspart (Novolog) 0 unit SUBCUT ACBREAKFASTANDBED [place]ETTE PRN Reason: Protocol Insulin Aspart (Novolog) 0 unit SUBCUT QIDACANDBED [facility] PRN Reason: Protocol Last Admin: 07/05/16 12:16 Dose: 8 units Insulin Aspart (Novolog) 10 unit SUBCUT TIDAC [facility] Insulin Aspart (Novolog) 8 unit SUBCUT TIDAC [facility] Last Admin: 07/04/16 16:51 Dose: 8 units Insulin Glargine (Lantus Solostar) 10 units SUBCUT DAILY [facility] Insulin Glargine (Lantus Solostar) 10 units SUBCUT DAILY [facility] Last Admin: 07/04/16 08:20 Dose: Not Given Insulin Glargine (Lantus Solostar) 16 units SUBCUT ONETIME ONE Stop: 07/04/16 09:01 Last Admin: 07/04/16 09:19 Dose: 16 units Insulin Glargine (Lantus Solostar) 10 units SUBCUT BEDTIME [facility] Last Admin: 07/04/16 21:14 Dose: 10 units Insulin Glargine (Lantus Solostar) 10 units SUBCUT DAILY [facility] Last Admin: 07/05/16 08:01 Dose: 10 units Insulin Glargine (Lantus Solostar) 10 units SUBCUT DAILY [facility] Last Admin: 07/05/16 12:18 Dose: 10 units Insulin Human Regular (Novolin R) 0 unit SUBCUT QIDACANDBED [facility] PRN Reason: Protocol Nystatin (Mycostatin) 10 ml PO QID [facility] Last Admin: 07/03/16 16:34 Dose: 10 ml - Exam General: Reports: alert, oriented, cooperative HEENT: Reports: Pupils equal, Pupils reactive, EOMI, Other (Posterior pharynx erthema improving, not so bright red, some qing white plaques still noted, but are improved since admission. ) Neck: Reports: supple. Denies: lymphadenopathy Lungs: Reports: Clear to auscultation, Normal respiratory effort Cardiovascular: Reports: regular rate, regular rhythm, no murmurs Abdomen: Reports: bowel sounds present, soft, no tenderness, no distension Extremities: Reports: no edema, normal pulses Neurological: Reports: no new focal deficit Psy/Mental Status: Reports: alert, normal affect, normal mood *Q Meaningful Use (DIS) - VTE *Q VTE Criteria *Q: - Stroke *Q Stroke Criteria *Q: - AMI *Q AMI Criteria *Q:
[2016-07-06] MEDS ORDERED: Insulin Glargine,Human Rec. Analog 100 Units/ML 3 ML Pen SUBCUT SCH (09:00)
[2016-07-06 09:38] LABS: CHLORIDE,CL 103 mmol/L (98-110); SODIUM,NA 136 mmol/L (136-146)
[2016-07-06] MEDS: Enoxaparin 40 MG/0.4 ML Syringe SUBCUT SCH (09:39)
[2016-07-06] MEDS ORDERED: Fluconazole 100 MG Tab PO SCH (10:45)
[2016-07-06] MEDS ORDERED: Lisinopril 10 MG Tab PO ONE (10:50)
[2016-07-06 11:31] VITALS: BP 119/96
== END 2016-07-06 12:01 | disposition home or self-care (01) | DRG 638 ==
LOC: MW.ICU 15:34 → MW.MS 07-04 18:20
PROVIDERS: ADMIT Internal Medicine; ATTEND Internal Medicine
DX: E11.65 Type 2 diabetes mellitus with hyperglycemia (principal); B37.0 Candidal stomatitis; N17.9 Acute kidney failure, unspecified; A88.0 Enteroviral exanthematous fever [Boston exanthem]; E86.0 Dehydration; R41.82 Altered mental status, unspecified; F32.9 Major depressive disorder, single episode, unspecified; Z87.891 Personal history of nicotine dependence
CPT/HCPCS: 36415; 36600; 71010; 71010-26; 80048; 80053; 80061; 82009; 82803; 82962; 83036; 83605; 83735; 84100; 84484; 85025; 87040; 93005; 97802; A9270-GY; J1450; J1650; J1815-GY ×2; J2405; J7030; J7040